=== PATIENT | female | born 1955 | race Caucasian/White ===

== ENCOUNTER → 2017-02-16 | Outpatient (CLI) | payer MEDICARE, OTHER | END | disposition home or self-care (01) | LOC: LABWHC1 10:03 | PROVIDERS: ATTEND Family Medicine | DX: R10.12 Left upper quadrant pain (principal) | CPT/HCPCS: 36415; 82272 ==

== ENCOUNTER → 2017-02-19 | Outpatient (CLI) | payer MEDICARE, OTHER ==
--- NOTE | 2017-02-19 17:10 | CT ---
EXAMINATION TYPE: CT abdomen w con DATE OF EXAM: 02/19/2017 4:52 PM COMPARISON: 05/08/2010 INDICATION: Pt states of upper abdominal pain x2 weeks. DLP: 1121 mGycm, Automated exposure control for dose reduction was used. CONTRAST: 100 mL of Omnipaque 300. Study performed with Oral Contrast TECHNIQUE: Axial images were obtained from above the diaphragm to the pubic rami in the axial plane a t 5 mm thick sections. Reconstructed images are reviewed on the computer in the coronal plane. FINDINGS: Limited CT sections are obtained the lung bases. The lung bases are clear. Hiatal hernia is present . CT ABDOMEN: Liver: There is a 0.6 cm cyst in the posterior right lobe liver. Spleen: Normal Pancreas: Normal Adrenal glands: The adrenal glands are normal. Gallbladder: Normal Kidneys: No masses are evident. No hydronephrosis is present. No cysts are present. Delayed images were obtained through the kidneys, which remain unremarkable. Aorta: Vascular calcification is within the aorta. Inferior vena cava: Normal. Loops of bowel within the abdomen are normal. Fecal debris is through the colon. Contrast extends the distal small bowel loops. There are loops lacking oral contrast are out of the [id number]-mm-buri and cannot be evaluated. IMPRESSIONS: 1. Mild fecal retention. 2. Hiatal hernia. 3. Hepatic cyst
== END ==
LOC: RADCTMAIN 16:17
PROVIDERS: ATTEND Family Medicine
DX: K44.9 Diaphragmatic hernia without obstruction or gangrene (principal); K76.89 Other specified diseases of liver; K59.00 Constipation, unspecified
CPT/HCPCS: 74160; Q9967

== ENCOUNTER → 2017-04-03 | Outpatient (CLI) | payer MEDICARE, OTHER ==
--- NOTE | 2017-04-07 14:29 | MM ---
Reason for exam: screening (asymptomatic). Last mammogram was performed 7 years and 1 month ago. History: Patient is postmenopausal and has history of other cancer at age 33. Family history of breast cancer in maternal aunt. Benign excisional biopsy, 2011. Physical Findings: A clinical breast exam by your physician is recommended on an annual basis and results should be correlated with mammographic findings. MG 3D Screening Mammo W/Cad Bilateral CC and MLO view(s) were taken. Prior study comparison: February 19, 2010, mammogram, performed at [facility]. There are scattered fibroglandular densities. Previous mammotome biopsy within the right breast. There is chronic nodularity bilaterally. No significant changes when compared with prior studies. ASSESSMENT: Benign, BI-RAD 2 RECOMMENDATION: Routine screening mammogram of both breasts in 1 year.
== END | disposition home or self-care (01) ==
LOC: RADMAMWWP 14:52
PROVIDERS: ATTEND Family Medicine
DX: Z12.31 Encounter for screening mammogram for malignant neoplasm of breast (principal)
CPT/HCPCS: 77063; G0202

== ENCOUNTER → 2017-05-06 | Outpatient (CLI) | payer MEDICARE, OTHER ==
--- NOTE | 2017-05-06 19:26 | US ---
EXAMINATION TYPE: US venous doppler duplex LE LT DATE OF EXAM: 05/06/2017 7:17 PM COMPARISON: NONE CLINICAL HISTORY: LLE Edema R22.42, M79.662 Pain in L Lower Limb. SIDE PERFORMED: Left TECHNIQUE: The lower extremity deep venous system is examined utilizing real time linear array sonog vesta with graded compression, doppler sonography and color-flow sonography. VESSELS IMAGED: External Iliac Vein (EIV) Common Femoral Vein Deep Femoral Vein Greater Saphenous Vein * Femoral Vein Popliteal Vein Small Saphenous Vein * Proximal Calf Veins (* superficial vessels) Left Leg: Negative for DVT IMPRESSION: Normal exam. No evidence of deep venous thrombosis.
== END | disposition home or self-care (01) ==
LOC: RADUSMAIN 18:19
PROVIDERS: ATTEND Family Medicine
DX: R22.42 Localized swelling, mass and lump, left lower limb (principal)

== ENCOUNTER 2017-05-14 20:01 | Emergency (ER) | payer MEDICARE, OTHER ==
[2017-05-14 20:15] VITALS: RESP 18; TEMP 99
[2017-05-14] MEDS ORDERED: HYDROcodone/APAP 5-325MG 1 EACH TAB PO STA (20:58)
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
[2017-05-14 21:27] LABS: Appearance,Urine Cloudy (Clear); Bacteria,Urine Few /hpf; Bilirubin,Urine Negative (Negative); Glucose,Urine (UA) Negative (Negative); Ketones,Urine Negative (Negative); Leukocyte Esterase,Urine Large (Negative); Mucus,Urine Rare /hpf; Nitrite,Urine Negative (Negative); Particle Count 3094; Protein,Urine Trace (Negative); RBC,Urine 4 /hpf (0-5); Specific Gravity,Urine 1.017 (1.001-1.035); Squamous Epithelial Cell,Urine 1 /hpf (0-4); UA Billing (MACRO vs. MICRO) MICRO; Urobilinogen,Urine <2.0 mg/dL (<2.0); WBC,Urine 54 /hpf (0-5)
[2017-05-14] MEDS ORDERED: NITROFURANTOIN MONOHYD/M-CRYST 100 MG CAP PO STA (21:31)
[2017-05-14 21:57] VITALS: BP 145/84; PULSE 85
== END 2017-05-14 21:55 | disposition home or self-care (01) ==
LOC: EC 20:01
DX: M25.552 Pain in left hip (principal); M54.5 Low back pain; M54.16 Radiculopathy, lumbar region; N39.0 Urinary tract infection, site not specified; Z88.2 Allergy status to sulfonamides; M79.652 Pain in left thigh; Z79.899 Other long term (current) drug therapy; K21.9 Gastro-esophageal reflux disease without esophagitis; F31.9 Bipolar disorder, unspecified; F17.200 Nicotine dependence, unspecified, uncomplicated
CPT/HCPCS: 81001; 87086; 99284

== ENCOUNTER → 2017-05-14 | Outpatient (CLI) | payer MEDICARE, OTHER ==
--- NOTE | 2017-05-14 12:43 | XR ---
EXAMINATION TYPE: XR Hip Complete LT DATE OF EXAM: 05/14/2017 CLINICAL HISTORY: pain TECHNIQUE: AP and frogleg views of the left hip are obtained. COMPARISON: None. FINDINGS: There is no acute fracture/dislocation evident. The joint space appears mildly narrowed. Mild spur formation seen. The overlying soft tissue appears unremarkable. IMPRESSION: 1. There is no acute fracture or dislocation. ICD 10 NO FRACTURE, INITIAL EVALUATION
== END | disposition home or self-care (01) ==
LOC: RADXRMAIN 11:52
PROVIDERS: ATTEND Family Medicine
DX: M25.552 Pain in left hip (principal)
CPT/HCPCS: 73502

== ENCOUNTER 2017-05-17 11:04 | Emergency (ER) | payer MEDICARE, OTHER ==
[2017-05-17 11:27] VITALS: RESP 18; TEMP 97.8
[2017-05-17] MEDS ORDERED: ORPHENADRINE 30 MG/ML 2 ML VIAL IM STA (12:14)
[2017-05-17] MEDS ORDERED: KETOROLAC 60 MG/2 ML VIAL IM STA (12:14)
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
--- NOTE | 2017-05-17 13:18 | XR ---
EXAMINATION TYPE: XR thoracic spine complete DATE OF EXAM: 05/17/2017 COMPARISON: NONE HISTORY: Pain and injury TECHNIQUE: 3 views FINDINGS: Thoracic vertebra have normal alignment. There is mild anterior spurring in the upper thora cic spine. There is no paraspinal mass. I see no compression fracture. There is suggestion of some pl eural thickening and increased right peritracheal density and bulky right pulmonary hilum. IMPRESSION: No fracture. Possible mediastinal and bronchial adenopathy that is new compared to old est x-ray of May 10, 2010. Follow-up is recommended. Chest x-ray would be helpful for further evaluat ion if clinically indicated.
--- NOTE | 2017-05-17 13:19 | XR ---
EXAMINATION TYPE: XR lumbosacral spine min 4V DATE OF EXAM: 05/17/2017 COMPARISON: NONE HISTORY: Pain TECHNIQUE: 5 views FINDINGS: Vertebra have normal alignment. There is hypertrophic spurring anteriorly throughout the rylie mbar spine. There is no compression fracture. Sacroiliac joints are intact. There is transitional L5 vertebra. IMPRESSION: Spondylotic changes. No fracture.
--- NOTE | 2017-05-17 13:21 | XR ---
EXAMINATION TYPE: XR pelvis AP view DATE OF EXAM: 05/17/2017 COMPARISON: NONE HISTORY: Pain TECHNIQUE: Single view FINDINGS: Pelvic ring is intact. Proximal femurs and hip joints are intact. Sacroiliac joints appear normal. IMPRESSION: Normal pelvis exam
--- NOTE | 2017-05-17 13:22 | XR ---
EXAMINATION TYPE: XR knee 4V LT DATE OF EXAM: 05/17/2017 COMPARISON: NONE HISTORY: Pain TECHNIQUE: 4 views FINDINGS: I see no fracture nor dislocation. Joint spaces are normal. There is no sign of knee joint effusion. IMPRESSION: Negative left knee exam.
[2017-05-17 13:26] LABS: Appearance,Urine Clear (Clear); Bilirubin,Urine Negative (Negative); Glucose,Urine (UA) Negative (Negative); Ketones,Urine Negative (Negative); Leukocyte Esterase,Urine Large (Negative); Mucus,Urine Rare /hpf; Nitrite,Urine Negative (Negative); Particle Count 2789; Protein,Urine Negative (Negative); RBC,Urine 1 /hpf (0-5); Specific Gravity,Urine 1.009 (1.001-1.035); Squamous Epithelial Cell,Urine 1 /hpf (0-4); UA Billing (MACRO vs. MICRO) MICRO; Urobilinogen,Urine <2.0 mg/dL (<2.0); WBC,Urine 10 /hpf (0-5)
--- NOTE | 2017-05-17 13:58 | ED ---
Medical Decision Making - Lab Data Lab Results 05/17/17 Range/Units 12:37 Urine Color Yellow Urine Appearance Clear (Clear) Urine pH 7.0 (5.0-8.0) Ur Specific [place] 1.009 (1.001-1.035) Urine Protein Negative (Negative) Urine Glucose (UA) Negative (Negative) Urine Ketones Negative (Negative) Urine Blood Negative (Negative) Urine Nitrite Negative (Negative) Urine Bilirubin Negative (Negative) Urine Urobilinogen <2.0 (<2.0) mg/dL Ur Leukocyte Esterase Large H (Negative) Urine RBC 1 (0-5) /hpf Urine WBC 10 H (0-5) /hpf Ur Squamous Epith Cells 1 (0-4) /hpf Urine Mucus Rare H (None) /hpf Disposition Clinical Impression: Thoracic myofascial strain, Lumbar strain, Contusion of left knee, UTI ( urinary tract infection) Disposition: HOME SELF-CARE Condition: Good Instructions: Low Back Strain (ED), Knee Pain (ED), Lower Back Exercises (ED), Thoracic Back Strain (ED) Prescriptions: methylPREDNISolone Dose Pack [Medrol Dose Pack] 4 mg PO DIRECTED #21 package traMADol HCL [Ultram] 50 mg PO Q6HR PRN #20 tab PRN Reason: Pain Referrals: Oanh Bansal MD [Primary Care Provider] - 1-2 days
[2017-05-17 14:18] VITALS: BP 144/69; PULSE 84
== END 2017-05-17 14:17 | disposition home or self-care (01) ==
LOC: EC 11:04
DX: S29.012A Strain of muscle and tendon of back wall of thorax, initial encounter (principal); S39.012A Strain of muscle, fascia and tendon of lower back, initial encounter; S80.02XA Contusion of left knee, initial encounter; K21.9 Gastro-esophageal reflux disease without esophagitis; F31.9 Bipolar disorder, unspecified; F17.200 Nicotine dependence, unspecified, uncomplicated; Z79.899 Other long term (current) drug therapy; Z88.2 Allergy status to sulfonamides; V18.4XXA Pedal cycle driver injured in noncollision transport accident in traffic accident, initial encounter; Y92.480 Sidewalk as the place of occurrence of the external cause
CPT/HCPCS: 81001; 72072; 72110; 72170; 73564; 99283; 96372 ×2; J2360; J1885

== ENCOUNTER 2017-05-22 17:23 | Emergency (ER) | payer MEDICARE, OTHER ==
[2017-05-22 18:02] LABS: ALT 34 U/L (9-52); AST 59 U/L (14-36); Alkaline Phosphatase 122 U/L (38-126); Anion Gap 10 mmol/L; Blood Urea Nitrogen 23 mg/dL (7-17); Calcium 9.6 mg/dL (8.4-10.2); Carbon Dioxide 29 mmol/L (22-30); Chloride 100 mmol/L (98-107); Glucose 109 mg/dL (74-99); Non-African American GFR(MDRD) 58 (>60 ml/min/1.73 sqM); Potassium 4.9 mmol/L (3.5-5.1); Sodium 139 mmol/L (137-145); Total Bilirubin 0.3 mg/dL (0.2-1.3); Total Protein 7.8 g/dL (6.3-8.2)
[2017-05-22] MEDS ORDERED: HYDROcodone/APAP 5-325MG 1 EACH TAB PO STA (18:07)
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
[2017-05-22 19:21] VITALS: BP 163/75; TEMP 97.9
--- NOTE | 2017-05-22 19:29 | MR ---
EXAMINATION TYPE: MR lumbar spine w con DATE OF EXAM: 05/22/2017 COMPARISON: Precontrasted lumbar spine MRI earlier today, CT abdomen 02/19/2017 HISTORY: Abnormal finding on MRI brought back for Contrast TECHNIQUE: Multiplanar, multisequence images of the lumbar spine were acquired utilizing 20 mL intrav enous MultiHance gadolinium contrast. IMPRESSION: The precontrast lumbar spine MRI showed innumerable heterogeneous lesions throughout the skeletal structures, giving a presumptive diagnosis of bone metastatic neoplasm. The 2 cm at epidural soft tissue mass at the L3 level, which was the focus of this examination, is se en to moderately enhance following intravenous gadolinium contrast. The enhancement pattern is homoge neous. On the sagittal precontrast T1 weighted sequence (image 7 of 15) there may be interruption of the posterior vertebral body cortex at anterior margin of the soft tissue mass. Therefore, the most likely diagnosis for the epidural soft tissue mass is metastatic epidural neoplasm emanating from the multifocal bone metastases. The diagnosis of bone metastases can be worked up with total body nuclea r medicine bone scan. The differential diagnosis includes an unusual presentation of disc extrusion. However, both the L2-3 annulus fibrosis and the L3-4 annulus fibrosis appear to be intact, making disc extrusion unlikely. Review of the CT from February 19, 2017 shows that the epidural lesion was not present at that time. The skeletal structures have a heterogeneous CT appearance, a nonspecific finding. There is no cortical disruption on the CT images. IMPRESSION: Epidural mass at the L2-3 level moderately enhances following intravenous gadolinium contrast deliver y, as discussed above.
[2017-05-22] MEDS ORDERED: HYDROmorphone 1 MG/ML 1 ML SYRINGE IVP STA (21:05)
[2017-05-22 21:07] VITALS: PULSE 100; RESP 20
== END 2017-05-22 21:40 | disposition other institution (70) ==
LOC: EC 17:23
DX: D49.7 Neoplasm of unspecified behavior of endocrine glands and other parts of nervous system (principal); C79.51 Secondary malignant neoplasm of bone; M54.16 Radiculopathy, lumbar region; M54.5 Low back pain; V19.88XS Pedal cyclist (driver) (passenger) injured in other specified transport accidents, sequela; Y93.55 Activity, bike riding; F31.9 Bipolar disorder, unspecified; K21.9 Gastro-esophageal reflux disease without esophagitis; Z79.899 Other long term (current) drug therapy; Z88.2 Allergy status to sulfonamides; F17.200 Nicotine dependence, unspecified, uncomplicated; Z85.42 Personal history of malignant neoplasm of other parts of uterus
CPT/HCPCS: 96374 ×2; 99285 ×2; 36415; 80053; 72148; 72149; J1170; A9577

== ENCOUNTER → 2017-05-22 | Outpatient (CLI) | payer MEDICARE, OTHER ==
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
== END | disposition home or self-care (01) ==
LOC: RADMRIMAIN 15:31
PROVIDERS: ATTEND Family Medicine
DX: M48.06 Spinal stenosis, lumbar region (principal); M51.16 Intervertebral disc disorders with radiculopathy, lumbar region; M46.86 Other specified inflammatory spondylopathies, lumbar region; R94.8 Abnormal results of function studies of other organs and systems; Z88.1 Allergy status to other antibiotic agents; Z88.2 Allergy status to sulfonamides; Z88.8 Allergy status to other drugs, medicaments and biological substances
CPT/HCPCS: 72148

== ENCOUNTER 2017-06-15 19:22 | Emergency (ER) | payer MEDICARE, OTHER ==
[2017-06-15] MEDS ORDERED: SODIUM CHLORIDE 0.9% 1,000 ML IV STA (19:59)
--- NOTE | 2017-06-15 20:10 | ED ---
General Adult HPI - General Chief complaint: Urogenital Stated complaint: Female Time Seen by Provider: 06/15/17 19:52 Source: patient, RN notes reviewed, old records reviewed Mode of arrival: ambulatory Limitations: no limitations - History of Present Illness Initial comments: This is a 61-year-old female presenting to emergency Department chief complaint of possible dehydration or urinary tract infection. She has a history of small cell lung cancer. She was sent here by her chemo doctor as she has not urinated more than twice in the past 24 hours. She states that she does have an appointment to see her chemo doctor tomorrow. She denies any specific abdominal pain. Patient reports that she is in stage IV with small cell lung cancer. She does have a history of metastases to the spine. She denies any specific fever or chills, nausea or vomiting. She denies any diarrhea. She reports that she's been trying to have a bowel movement and did take some milk Magnesia earlier today. She reports that she's had no chest pain or shortness of breath. - Related Data Home Medications Medication Instructions Recorded Confirmed FLUoxetine HCL 40 mg PO BID 05/14/17 06/15/17 Perphenazine [Trilafon] 2 mg PO BID 05/14/17 06/15/17 traZODone HCL [Desyrel] 100 mg PO HS 05/22/17 06/15/17 Dexamethasone [Hexadrol] 4 mg PO Q8H 06/15/17 06/15/17 Gabapentin [Neurontin] 400 mg PO TID 06/15/17 06/15/17 Morphine Sulfate ER [Ms Contin 30 mg PO Q12HR 06/15/17 06/15/17 30Mg] Pantoprazole [Protonix] 40 mg PO DAILY 06/15/17 06/15/17 Sennosides [Senna] 8.6 mg PO BID 06/15/17 06/15/17 oxyCODONE-APAP 5-325MG [Percocet 1 tab PO Q4H PRN 06/15/17 06/15/17 5-325 mg] Previous Rx's Medication Instructions Recorded Nitrofurantoin Monohyd/M-Cryst 100 mg PO Q12HR #14 cap 06/15/17 [Macrobid] Allergies Allergy/AdvReac Type Severity Reaction Status Date / Time adhesive tape Allergy Rash/Hives Verified 06/15/17 19:52 Sulfa (Sulfonamide Allergy Itching Verified 06/15/17 19:52 Antibiotics) Review of Systems ROS Statement: Those systems with pertinent positive or pertinent negative responses have been documented in the HPI. ROS Other: All systems not noted in ROS Statement are negative. Past Medical History Past Medical History: GERD/Reflux Additional Past Medical History / Comment(s): small cell lung ca. History of Any Multi-Drug Resistant Organisms: None Reported Past Surgical History: Hysterectomy, Tonsillectomy Past Psychological History: Bipolar, Depression Smoking Status: Former smoker Past Alcohol Use History: None Reported Past Drug Use History: None Reported General Exam Limitations: no limitations General appearance: alert, in no apparent distress Head exam: Present: atraumatic, normocephalic, normal inspection Eye exam: Present: normal appearance, PERRL, EOMI. Absent: scleral icterus, conjunctival injection, periorbital swelling ENT exam: Present: normal exam, mucous membranes moist Neck exam: Present: normal inspection. Absent: tenderness, meningismus, lymphadenopathy Respiratory exam: Present: normal lung sounds bilaterally. Absent: respiratory distress, wheezes, rales, rhonchi, stridor Cardiovascular Exam: Present: regular rate, normal rhythm, normal heart sounds. Absent: systolic murmur, diastolic murmur, rubs, gallop, clicks Extremities exam: Present: normal inspection, full ROM, normal capillary refill. Absent: tenderness, pedal edema, joint swelling, calf tenderness Back exam: Present: normal inspection Neurological exam: Present: alert, oriented X3, CN II-XII intact Psychiatric exam: Present: normal affect, normal mood Skin exam: Present: warm, dry, intact, normal color. Absent: rash Course Vital Signs 06/15/17 06/15/17 19:28 22:33 Temperature 96.7 F L 97.6 F Pulse Rate 76 69 Respiratory 20 16 Rate Blood Pressure 143/66 133/62 O2 Sat by Pulse 98 99 Oximetry Medical Decision Making - Medical Decision Making This is a 61-year-old female presenting to emergency Department chief complaint of possible dehydration or urinary tract infection. She has a history of small cell lung cancer. She was sent here by her chemo doctor as she has not urinated more than twice in the past 24 hours. She states that she does have an appointment to see her chemo doctor tomorrow. She denies any specific abdominal pain. Patient given IV fluids, Urinalysis is consistent with UTI. She has mildly increased renal function, likely related to dehydration. PAtient will be started on antibiotics and advised to follow up with oncologist and PCP. Return parameters dsicussed. - Lab Data Result diagrams: 06/15/17 20:56 06/15/17 20:56 Lab Results 06/15/17 06/15/17 06/15/17 Range/Units 19:50 20:56 20:56 WBC 4.9 (3.8-10.6) k/uL RBC 3.78 L (3.80-5.40) m/uL Hgb 11.3 L (11.4-16.0) gm/dL Hct 33.8 L (34.0-46.0) % MCV 89.4 (80.0-100.0) fL MCH 29.8 (25.0-35.0) pg MCHC 33.3 (31.0-37.0) g/dL RDW 15.5 (11.5-15.5) % Plt Count 178 (150-450) k/uL Neutrophils % 73 % Lymphocytes % 13 % Monocytes % 9 % Eosinophils % 1 % Basophils % 1 % Neutrophils # 3.5 (1.3-7.7) k/uL Lymphocytes # 0.6 L (1.0-4.8) k/uL Monocytes # 0.4 (0-1.0) k/uL Eosinophils # 0.0 (0-0.7) k/uL Basophils # 0.1 (0-0.2) k/uL Polychromasia Present Sodium 132 L (137-145) mmol/L Potassium 5.0 (3.5-5.1) mmol/L Chloride 100 (98-107) mmol/L Carbon Dioxide 26 (22-30) mmol/L Anion Gap 6 mmol/L BUN 37 H (7-17) mg/dL Creatinine 0.72 (0.52-1.04) mg/dL Est GFR (MDRD) Af Amer >60 (>60 ml/min/1.73 sqM) Est GFR (MDRD) Non-Af >60 (>60 ml/min/1.73 sqM) Glucose 142 H (74-99) mg/dL Calcium 7.9 L (8.4-10.2) mg/dL Total Bilirubin 0.5 (0.2-1.3) mg/dL AST 34 (14-36) U/L ALT 40 (9-52) U/L Alkaline Phosphatase 177 H (38-126) U/L Total Protein 5.5 L (6.3-8.2) g/dL Albumin 3.1 L (3.5-5.0) g/dL Lipase 91 (23-300) U/L Urine Color Yellow Urine Appearance Clear (Clear) Urine pH 6.0 (5.0-8.0) Ur Specific [place] 1.029 (1.001-1.035) Urine Protein Trace H (Negative) Urine Glucose (UA) Negative (Negative) Urine Ketones Negative (Negative) Urine Blood Negative (Negative) Urine Nitrite Negative (Negative) Urine Bilirubin Negative (Negative) Urine Urobilinogen <2.0 (<2.0) mg/dL Ur Leukocyte Esterase Moderate H (Negative) Urine RBC 2 (0-5) /hpf Urine WBC 31 H (0-5) /hpf Ur Squamous Epith Cells 2 (0-4) /hpf Urine Bacteria Rare H (None) /hpf Hyaline Casts 3 H (0-2) /lpf Urine Mucus Rare H (None) /hpf Disposition Clinical Impression: UTI (urinary tract infection) Disposition: HOME SELF-CARE Condition: Good Instructions: Urinary Tract Infection in Women (ED) Additional Instructions: Patient was rest, increase fluids. Take the medications as directed. Return to emergency department if any alarming signs or symptoms occur. Prescriptions: Nitrofurantoin Monohyd/M-Cryst [Macrobid] 100 mg PO Q12HR #14 cap Referrals: Oanh Bansal MD [Primary Care Provider] - 1-2 days Time of Disposition: 22:06
--- NOTE | 2017-06-15 20:15 | XR ---
EXAMINATION TYPE: XR KUB DATE OF EXAM: 06/15/2017 8:10 PM CLINICAL HISTORY: Urinary retention. History of lung cancer. TECHNIQUE: Single supine KUB image of the abdomen is obtained. COMPARISON: 05/10/2010. FINDINGS: Scattered gas is seen in non-distended small bowel loops. Gas and fecal material is seen in non-distended colon. Bridging osteophytes are seen within the lumbar spine. Mild degenerative change s of the femoral acetabular joints are displayed as acetabular sclerosis an minimal joint space narro wing. There is no visceromegaly, pneumoperitoneum, or abnormal calcification appreciated. Single phle bolith is seen below the left ischial spine. The lung bases are clear and the osseous structures are intact. IMPRESSION: 1. Overall nonobstructive bowel gas pattern. 2. No abnormal calcifications within the abdomen or pelvis.
[2017-06-15 20:45] LABS: Appearance,Urine Clear (Clear); Bacteria,Urine Rare /hpf; Bilirubin,Urine Negative (Negative); Glucose,Urine (UA) Negative (Negative); Ketones,Urine Negative (Negative); Leukocyte Esterase,Urine Moderate (Negative); Mucus,Urine Rare /hpf; Nitrite,Urine Negative (Negative); Particle Count 4885; Protein,Urine Trace (Negative); RBC,Urine 2 /hpf (0-5); Specific Gravity,Urine 1.029 (1.001-1.035); Squamous Epithelial Cell,Urine 2 /hpf (0-4); UA Billing (MACRO vs. MICRO) MICRO; Urobilinogen,Urine <2.0 mg/dL (<2.0); WBC,Urine 31 /hpf (0-5)
[2017-06-15 21:21] LABS: ALT 40 U/L (9-52); AST 34 U/L (14-36); Alkaline Phosphatase 177 U/L (38-126); Anion Gap 6 mmol/L; Blood Urea Nitrogen 37 mg/dL (7-17); Calcium 7.9 mg/dL (8.4-10.2); Carbon Dioxide 26 mmol/L (22-30); Chloride 100 mmol/L (98-107); Glucose 142 mg/dL (74-99); Non-African American GFR(MDRD) >60 (>60 ml/min/1.73 sqM); Sodium 132 mmol/L (137-145); Total Bilirubin 0.5 mg/dL (0.2-1.3); Total Protein 5.5 g/dL (6.3-8.2)
[2017-06-15 21:24] LABS: Basophils # (A) 0.1 k/uL (0-0.2); Basophils % (A) 1 %; CH 30.3; Eosinophils % (A) 1 %; HCT 33.8 % (34.0-46.0); HDW 2.56; HGB 11.3 gm/dL (11.4-16.0); Immature Gran Flag Moderate; Luc % (Auto) 4; Lymphocytes # (A) 0.6 k/uL (1.0-4.8); Lymphocytes % (A) 13 %; MCH 29.8 pg (25.0-35.0); MCHC 33.3 g/dL (31.0-37.0); MCV 89.4 fL (80.0-100.0); Mean Platelet Volume 7.1; Monocytes # (A) 0.4 k/uL (0-1.0); Monocytes % (A) 9 %; Neutrophils # (A) 3.5 k/uL (1.3-7.7); Neutrophils % (A) 73 %; RBC 3.78 m/uL (3.80-5.40); RDW 15.5 % (11.5-15.5); WBC 4.9 k/uL (3.8-10.6); WBC (Perox) 4.72
[2017-06-15 21:53] LABS: Polychromasia Present
[2017-06-15] MEDS ORDERED: NITROFURANTOIN MONOHYD/M-CRYST 100 MG CAP PO STA (22:07)
[2017-06-15 22:36] VITALS: BP 133/62; PULSE 69; RESP 16; TEMP 97.6
== END 2017-06-15 22:44 | disposition home or self-care (01) ==
LOC: EC 19:22
DX: N39.0 Urinary tract infection, site not specified (principal); K21.9 Gastro-esophageal reflux disease without esophagitis; F31.9 Bipolar disorder, unspecified; Z85.118 Personal history of other malignant neoplasm of bronchus and lung; Z87.891 Personal history of nicotine dependence; Z79.891 Long term (current) use of opiate analgesic; Z79.899 Other long term (current) drug therapy; Z88.2 Allergy status to sulfonamides; Z91.048 Other nonmedicinal substance allergy status
CPT/HCPCS: 36415; 74000; 80053; 81001; 83690; 85025; 96360; 99284

== ENCOUNTER 2017-07-05 20:51 | Inpatient (IN) | payer MEDICARE, OTHER ==
[2017-07-05] MEDS ORDERED: SODIUM CHLORIDE 0.9% 1,000 ML IV STA ×2 (21:01)
[2017-07-05] MEDS ORDERED: ACETAMINOPHEN IV (For NPO) 1,000 MG in EMPTY BAG 1 BAG IVPB ONE (21:01)
[2017-07-05] MEDS ORDERED: FAMOTIDINE 20 MG/2 ML VIAL IV STA (21:03)
[2017-07-05] MEDS ORDERED: ONDANSETRON 4 MG/2 ML VIAL IVP STA (21:04)
--- NOTE | 2017-07-05 21:14 | ED ---
General Adult HPI - General Chief complaint: Headache Stated complaint: Headache/Nausea/Vomiting Time Seen by Provider: 07/05/17 20:53 Source: patient, family, EMS, RN notes reviewed, old records reviewed Mode of arrival: EMS Limitations: no limitations - History of Present Illness Initial comments: Chief complaint history of present illness is a 61-year-old female scone the emergency goes of nausea vomiting diarrhea and headache. The patient temperature is 103. All this started approximately 3 hours ago. Patient doesn' t know history of small cell lung cancer. She was recently treated urinary tract infection. - Related Data Home Medications Medication Instructions Recorded Confirmed FLUoxetine HCL 40 mg PO BID 05/14/17 07/05/17 Perphenazine [Trilafon] 2 mg PO BID 05/14/17 07/05/17 traZODone HCL [Desyrel] 100 mg PO HS PRN 05/22/17 07/05/17 Dexamethasone [Hexadrol] 4 mg PO Q8H 06/15/17 07/05/17 Gabapentin [Neurontin] 400 mg PO TID 06/15/17 07/05/17 Morphine Sulfate ER [Ms Contin 30 mg PO Q12HR 06/15/17 07/05/17 30Mg] Pantoprazole [Protonix] 40 mg PO DAILY 06/15/17 07/05/17 Sennosides [Senna] 8.6 mg PO BID 06/15/17 07/05/17 oxyCODONE-APAP 5-325MG [Percocet 1 tab PO Q4H PRN 06/15/17 07/05/17 5-325 mg] Allergies Allergy/AdvReac Type Severity Reaction Status Date / Time adhesive tape Allergy Rash/Hives Verified 07/05/17 21:16 Sulfa (Sulfonamide Allergy Itching Verified 07/05/17 21:16 Antibiotics) Review of Systems ROS Statement: Those systems with pertinent positive or pertinent negative responses have been documented in the HPI. Review of systems headache but no meningismus no complaint of change in visual acuity. Denies cough. She does not nausea vomiting and diarrhea. All systems reviewed. Past medical problems significant for GERD, small cell lung cancer. Surgeries hysterectomy tonsillectomy. Recently in emergency room for dehydration. The patient's undergoing chemotherapy. With reported metastases to the spine. Other past psychological history includes bipolar depression. Former smoker. Denies alcohol use. ROS Other: All systems not noted in ROS Statement are negative. Past Medical History Past Medical History: GERD/Reflux Additional Past Medical History / Comment(s): small cell lung ca. History of Any Multi-Drug Resistant Organisms: None Reported Past Surgical History: Hysterectomy, Tonsillectomy Past Psychological History: Bipolar, Depression Smoking Status: Former smoker Past Alcohol Use History: None Reported Past Drug Use History: None Reported General Exam - General Exam Comments Initial Comments: General: The patient is awake and alert, patient complains not feeling well. This started approximately 3 hours prior to coming emergency room. Her vital signs show temperature 103. Pulse 79 respiratory rate 20 pulse ox 96% room air blood pressure 172/77. Eye: Pupils are equal, round and reactive to light, extra-ocular movements are intact ; there is normal conjunctiva bilaterally. No signs of icterus. Ears, nose, mouth and throat: There are moist mucous membranes and no oral lesions. Neck: The neck is supple, there is no tenderness. Cardiovascular: There is a regular rate and rhythm. No murmur, rub or gallop is appreciated. Respiratory: Lungs are clear to auscultation, respirations are non-labored, breath sounds are equal. Rare rales on the right mid field. Gastrointestinal: No nausea no vomiting patient did have diarrhea. Back: There is no tenderness to palpation in the midline. There is no obvious deformity. No rashes noted. Musculoskeletal: Normal ROM, no tenderness, There is no pedal edema. There is no calf tenderness or swelling. Sensation intact. Pulses equal bilaterally 2+. Family reports that the lung cancer metastasized to the spine. Neurological: CN II-XII intact, There are no obvious motor or sensory deficits. Coordination appears grossly intact. Speech is normal. Patient is able to ambulate without difficulty. Skin: No rashes Limitations: no limitations Course Vital Signs 07/05/17 07/05/17 07/05/17 20:56 22:29 22:57 Temperature 103.0 F H 101.0 F H Pulse Rate 79 94 Respiratory 20 17 Rate Blood Pressure 172/77 131/64 O2 Sat by Pulse 96 98 Oximetry Medical Decision Making - Medical Decision Making Medical decision-making. The patient is here with a fever. She has had 2 courses of chemotherapy for small cell lung cancer. The patient spiked a fever approximate 6 PM this evening. Upon arrival to emergency room temperature 103. Pulse is only 79 respiratory rate 2696% room air with a blood pressure 172/ 77. Patient also had loose stool. The patient's labs show white count of 0.9 with a hemoglobin 10 hematocrit 29 platelet 66. Plasma lactic acid normal 1.8. BUN 24 creatinine 0.7 GFR greater than 60. Patient is neutropenic. Chest x- ray was suspicious for possible patchy infiltrate in the right perihilar region. She received cefepime shortly after arrival to emergency room. A call was put out to her oncologist Dr. Jere Suárez. We have not received a call back at this time. The patient had wanted to be transferred down to [facility] but without accepting physician she does agree to stay here continue her treatment. If her doctor calls and arrangements can be made for transfer at that time. Dr. Pabon The case discussed with the on-call hospitalist. Patient will be admitted to his service. We discussed her past history and current labs. Patient be continued on cefepime - Lab Data Result diagrams: 07/05/17 21:15 07/05/17 21:15 Lab Results 07/05/17 07/05/17 07/05/17 Range/Units 09:30 21:15 21:15 WBC 0.9 L* (3.8-10.6) k/uL RBC 3.33 L (3.80-5.40) m/uL Hgb 10.2 L (11.4-16.0) gm/dL Hct 29.6 L (34.0-46.0) % MCV 89.0 (80.0-100.0) fL MCH 30.7 (25.0-35.0) pg MCHC 34.5 (31.0-37.0) g/dL RDW 17.0 H (11.5-15.5) % Plt Count 66 L D (150-450) k/uL Neutrophils % (Manual) 21 % Lymphocytes % (Manual) 63 % Monocytes % (Manual) 14 % Eosinophils % (Manual) 1 % Basophils % (Manual) 1 % Neutrophils # (Manual) 0.19 L (1.3-7.7) k/uL Lymphocytes # (Manual) 0.57 L (1.0-4.8) k/uL Monocytes # (Manual) 0.13 (0-1.0) k/uL Eosinophils # (Manual) 0.01 (0-0.7) k/uL Basophils # (Manual) 0.01 (0-0.2) k/uL Nucleated RBCs 6 H (0-0) /100 WBC Manual Slide Review Performed Anisocytosis Slight Sodium 131 L (137-145) mmol/L Potassium 4.6 (3.5-5.1) mmol/L Chloride 99 (98-107) mmol/L Carbon Dioxide 25 (22-30) mmol/L Anion Gap 7 mmol/L BUN 24 H (7-17) mg/dL Creatinine 0.70 (0.52-1.04) mg/dL Est GFR (MDRD) Af Amer >60 (>60 ml/min/1.73 sqM) Est GFR (MDRD) Non-Af >60 (>60 ml/min/1.73 sqM) Glucose 125 H (74-99) mg/dL Plasma Lactic Acid Lawrence (0.7-2.0) mmol/L Calcium 8.1 L (8.4-10.2) mg/dL Total Bilirubin 0.4 (0.2-1.3) mg/dL AST 18 (14-36) U/L ALT 45 (9-52) U/L Alkaline Phosphatase 111 (38-126) U/L Total Protein 5.5 L (6.3-8.2) g/dL Albumin 3.2 L (3.5-5.0) g/dL Urine Color Urine Appearance (Clear) Urine pH (5.0-8.0) Ur Specific [place] (1.001-1.035) Urine Protein (Negative) Urine Glucose (UA) (Negative) Urine Ketones (Negative) Urine Blood (Negative) Urine Nitrite (Negative) Urine Bilirubin (Negative) Urine Urobilinogen (<2.0) mg/dL Ur Leukocyte Esterase (Negative) C. difficile (EIA) Intrp Negative (Negative) Influenza Type A RNA (Not Detectd) Influenza Type B (PCR) (Not Detectd) 07/05/17 07/05/17 07/05/17 Range/Units 21:15 21:32 23:00 WBC (3.8-10.6) k/uL RBC (3.80-5.40) m/uL Hgb (11.4-16.0) gm/dL Hct (34.0-46.0) % MCV (80.0-100.0) fL MCH (25.0-35.0) pg MCHC (31.0-37.0) g/dL RDW (11.5-15.5) % Plt Count (150-450) k/uL Neutrophils % (Manual) % Lymphocytes % (Manual) % Monocytes % (Manual) % Eosinophils % (Manual) % Basophils % (Manual) % Neutrophils # (Manual) (1.3-7.7) k/uL Lymphocytes # (Manual) (1.0-4.8) k/uL Monocytes # (Manual) (0-1.0) k/uL Eosinophils # (Manual) (0-0.7) k/uL Basophils # (Manual) (0-0.2) k/uL Nucleated RBCs (0-0) /100 WBC Manual Slide Review Anisocytosis Sodium (137-145) mmol/L Potassium (3.5-5.1) mmol/L Chloride (98-107) mmol/L Carbon Dioxide (22-30) mmol/L Anion Gap mmol/L BUN (7-17) mg/dL Creatinine (0.52-1.04) mg/dL Est GFR (MDRD) Af Amer (>60 ml/min/1.73 sqM) Est GFR (MDRD) Non-Af (>60 ml/min/1.73 sqM) Glucose (74-99) mg/dL Plasma Lactic Acid Lawrence 1.8 (0.7-2.0) mmol/L Calcium (8.4-10.2) mg/dL Total Bilirubin (0.2-1.3) mg/dL AST (14-36) U/L ALT (9-52) U/L Alkaline Phosphatase (38-126) U/L Total Protein (6.3-8.2) g/dL Albumin (3.5-5.0) g/dL Urine Color Colorless Urine Appearance Clear (Clear) Urine pH 7.0 (5.0-8.0) Ur Specific [place] 1.010 (1.001-1.035) Urine Protein Negative (Negative) Urine Glucose (UA) Negative (Negative) Urine Ketones Negative (Negative) Urine Blood Negative (Negative) Urine Nitrite Negative (Negative) Urine Bilirubin Negative (Negative) Urine Urobilinogen <2.0 (<2.0) mg/dL Ur Leukocyte Esterase Negative (Negative) C. 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
[2017-07-05 21:38] LABS: Anisocytosis Slight; Aty Lym Flag Slight; CH 30.5; CHCM 34.4; HCT 29.6 % (34.0-46.0); HDW 3.04; HGB 10.2 gm/dL (11.4-16.0); MCH 30.7 pg (25.0-35.0); MCHC 34.5 g/dL (31.0-37.0); Mean Platelet Volume 7.4; RBC 3.33 m/uL (3.80-5.40); WBC (Perox) 1.12
[2017-07-05] MEDS ORDERED: CEFEPIME 2 GM in SODIUM CHLORIDE 0.9% 50 ML IVPB STA (21:49)
[2017-07-05 21:50] LABS: ALT 45 U/L (9-52); AST 18 U/L (14-36); Alkaline Phosphatase 111 U/L (38-126); Anion Gap 7 mmol/L; Blood Urea Nitrogen 24 mg/dL (7-17); Calcium 8.1 mg/dL (8.4-10.2); Carbon Dioxide 25 mmol/L (22-30); Chloride 99 mmol/L (98-107); Glucose 125 mg/dL (74-99); Non-African American GFR(MDRD) >60 (>60 ml/min/1.73 sqM); Potassium 4.6 mmol/L (3.5-5.1); Sodium 131 mmol/L (137-145); Total Bilirubin 0.4 mg/dL (0.2-1.3); Total Protein 5.5 g/dL (6.3-8.2)
[2017-07-05 21:55] LABS: Add Differential Manual Differential
[2017-07-05 21:56] LABS: Nucleated Red Blood Cells 6 /100 WBC (0-0); Total Cells Counted 100
[2017-07-05 21:57] LABS: WBC 0.9 k/uL (3.8-10.6)
[2017-07-05 21:58] LABS: Manual Review Performed
--- NOTE | 2017-07-05 22:20 | XR ---
EXAM: XR Chest, 1 View CLINICAL HISTORY: Reason: Fever, history small cell lung cancer TECHNIQUE: Frontal view of the chest. COMPARISON: 05/10/10 FINDINGS: Lungs: Patchy opacity in the right perihilar area. Pulmonary vasculature is normal. Pleural space: Unremarkable. No pneumothorax. Heart: Heart size is normal. Mediastinum: Unremarkable. Bones/joints: Unremarkable. Tubes, lines and devices: Left chest Mediport in place with catheter tip in the cavoatrial junction. IMPRESSION: Patchy right perihilar opacity. This may be consolidation relating to known small cell lung cancer. Pneumonic infiltrate is not excluded. Correlate clinically.
[2017-07-05] MEDS ORDERED: METOCLOPRAMIDE 5 MG/ML 2 ML VIAL IVP STA (22:36)
[2017-07-05 23:12] LABS: Appearance,Urine Clear (Clear); Bilirubin,Urine Negative (Negative); Glucose,Urine (UA) Negative (Negative); Ketones,Urine Negative (Negative); Leukocyte Esterase,Urine Negative (Negative); Nitrite,Urine Negative (Negative); Protein,Urine Negative (Negative); UA Billing (MACRO vs. MICRO) CHEM; Urobilinogen,Urine <2.0 mg/dL (<2.0)
[2017-07-05] MEDS ORDERED: CEFEPIME 2 GM in SODIUM CHLORIDE 0.9% 50 ML IVPB SCH (23:30)
[2017-07-05] MEDS ORDERED: VANCOMYCIN IV PER PHARMACY 1 EACH MISC MISCELLANE PRN (23:32)
[2017-07-05] MEDS ORDERED: traZODone HCL 100 MG TAB PO PRN (23:38)
[2017-07-05] MEDS ORDERED: oxyCODONE-APAP 5-325MG 1 EACH TAB PO PRN (23:38)
--- NOTE | 2017-07-05 23:44 | P.HPIM ---
History of Present Illness H&P Date: 07/05/17 Chief Complaint: Nausea and vomiting 61yo lady h/o small cell lung ca on chemotherapy with last cycle being 2wks ago , p/w weakness, fever and nausea/vomiting for the last few days. She has recent UTI that was treated with ABx. In the ED, she had a Tmax of 103 with WBC 0.9 only. CXR showed perihilar opacity that was concerning for possible PNA. She did have -ve C.Diff, Flu, in the ED. She got IV Tylenol and 1L bolus that broughther fever down. She was started on Cefepime after obtaining blood Cx. ED planned to transfer her to her oncologist in [facility] but no response was available from the other side overnight. Pt is in lots of distress when seen, pain was not controlled, generalized in the body, she takes MsContin and Percocet at home, she verbalized that she needs to be placed in hospice. Review of Systems Constitutional: Reports anorexia, Reports chills, Reports chronic pain, Reports fever Eyes: denies blurred vision Ears: deny: ear discharge Ears, nose, mouth and throat: Denies nasal congestion, Denies neck fullness/ pressure, Denies sore throat Cardiovascular: Denies claudication, Denies leg edema, Denies syncope Respiratory: Denies congestion, Denies hemoptysis Gastrointestinal: Reports abdominal pain, Denies diarrhea, Denies hematemesis Genitourinary: Reports dysuria, Denies hematuria Musculoskeletal: Reports low back pain, Reports myalgias, Reports neck pain Musculoskeletal: bilateral: as per HPI Integumentary: Denies pruritus, Denies rash Neurological: Denies confusion, Denies loss of vision, Denies syncope Psychiatric: Reports anxiety, Reports depression, Denies hallucinations Endocrine: Reports weight change, Denies cold intolerance Allergic/Immunologic: Denies urticaria, Denies wheezing Past Medical History Past Medical History: GERD/Reflux Additional Past Medical History / Comment(s): small cell lung ca. History of Any Multi-Drug Resistant Organisms: None Reported Past Surgical History: Hysterectomy, Tonsillectomy Past Psychological History: Bipolar, Depression Smoking Status: Former smoker Past Alcohol Use History: None Reported Past Drug Use History: None Reported - Past Family History Daughter(s) Additional Family Medical History / Comment(s): nothing known Mother Family Medical History: Diabetes Mellitus Medications and Allergies Home Medications Medication Instructions Recorded Confirmed Type FLUoxetine HCL 40 mg PO BID 05/14/17 07/05/17 History Perphenazine [Trilafon] 2 mg PO BID 05/14/17 07/05/17 History traZODone HCL [Desyrel] 100 mg PO HS PRN 05/22/17 07/05/17 History Dexamethasone [Hexadrol] 4 mg PO Q8H 06/15/17 07/05/17 History Gabapentin [Neurontin] 400 mg PO TID 06/15/17 07/05/17 History Morphine Sulfate ER [Ms Contin 30 mg PO Q12HR 06/15/17 07/05/17 History 30Mg] Pantoprazole [Protonix] 40 mg PO DAILY 06/15/17 07/05/17 History Sennosides [Senna] 8.6 mg PO BID 06/15/17 07/05/17 History oxyCODONE-APAP 5-325MG [Percocet 1 tab PO Q4H PRN 06/15/17 07/05/17 History 5-325 mg] Allergies Allergy/AdvReac Type Severity Reaction Status Date / Time adhesive tape Allergy Rash/Hives Verified 07/05/17 21:16 bee venom protein (honey bee) Allergy Rash/Hives Verified 07/06/17 00:41 Sulfa (Sulfonamide Allergy Itching Verified 07/05/17 21:16 Antibiotics) Physical Exam Vitals: Vital Signs Temp Pulse Resp BP Pulse Ox 07/05/17 22:57 101.0 F H 07/05/17 22:29 94 17 131/64 98 07/05/17 20:56 103.0 F H 79 20 172/77 96 Intake and Output 07/05/17 07/05/17 07/06/17 14:59 22:59 06:59 Other: Weight 92.533 kg Patient Weight 07/06/17 06:59 Weight 92.533 kg - Constitutional General appearance: severe distress - EENT Eyes: EOMI, PERRLA - Neck Neck: no thyromegaly - Respiratory Respiratory: bilateral: CTA, negative: dullness, wheezing - Cardiovascular Rhythm: regular Heart sounds: normal: S1, S2 Abnormal Heart Sounds: no systolic murmur - Gastrointestinal General gastrointestinal: normal bowel sounds, no organomegaly, no soft, no tenderness - Integumentary Integumentary: no cellulitis Results CBC & Chem 7: 07/06/17 05:10 07/06/17 05:10 Labs: Abnormal Lab Results - Last 24 Hours (Table) 07/05/17 07/05/17 Range/Units 21:15 21:15 WBC 0.9 L* (3.8-10.6) k/uL RBC 3.33 L (3.80-5.40) m/uL Hgb 10.2 L (11.4-16.0) gm/dL Hct 29.6 L (34.0-46.0) % RDW 17.0 H (11.5-15.5) % Plt Count 66 L D (150-450) k/uL Neutrophils # (Manual) 0.19 L (1.3-7.7) k/uL Lymphocytes # (Manual) 0.57 L (1.0-4.8) k/uL Nucleated RBCs 6 H (0-0) /100 WBC Sodium 131 L (137-145) mmol/L BUN 24 H (7-17) mg/dL Glucose 125 H (74-99) mg/dL Calcium 8.1 L (8.4-10.2) mg/dL Total Protein 5.5 L (6.3-8.2) g/dL Albumin 3.2 L (3.5-5.0) g/dL Thrombosis Risk Factor Assmnt - DVT/VTE Prophylaxis DVT/VTE Prophylaxis: Pharmacologic Prophylaxis ordered Assessment and Plan Plan: #Neutropenic fever of undetermined etiology -Neg C.Diff and Flu, pending blood Cx (including the post) and UA -Cont on Cefepime and Vancomycin -Concern for possible HCAP, pt reported increasing coughing recently -Postponed ID and Onc Cs for now as pt is asking for hospice care #Small cell lung Ca -Transfer to her oncologist in [place] once posible -Consult Hospice -Pain control with IV Dil PRN, Percocet PRN and Home MsContin -Cont home steroids #Pancytopenia -Effect of chemotherapy Monitor #Chronic cancer pain -Opioids as above DVT prophy with SCDs as pt has low Platelets DNAR, discussed with pt Time with Patient: Greater than 30
[2017-07-05] MEDS ORDERED: PERPHENAZINE 4 MG TAB PO SCH (23:45)
[2017-07-06] MEDS: ONDANSETRON 4 MG/2 ML VIAL IVP PRN ×4 (00:24→16:27)
[2017-07-06] MEDS: MORPHINE SULFATE ER 30 MG TABLET PO SCH ×3 (00:45→22:18)
[2017-07-06] MEDS ORDERED: VANCOMYCIN 1,500 MG in SODIUM CHLORIDE 0.9% 250 ML IVPB ONE (01:00)
[2017-07-06] MEDS: DEXAMETHASONE 4 MG TAB PO SCH ×3 (01:41→16:29)
[2017-07-06] MEDS: PERPHENAZINE 4 MG TAB PO SCH ×3 (01:41→22:17)
[2017-07-06] MEDS: SENNOSIDES 8.6 MG TAB PO SCH ×3 (01:41→19:38)
[2017-07-06] MEDS: FLUoxetine HCL 20 MG CAP PO SCH ×3 (01:41→22:18)
[2017-07-06] MEDS: GABAPENTIN 400 MG CAP PO SCH ×4 (01:41→22:17)
[2017-07-06] MEDS ORDERED: HYDROmorphone 1 MG/ML 1 ML SYRINGE ONE (04:32)
[2017-07-06] MEDS ORDERED: HYDROmorphone 1 MG/ML 1 ML SYRINGE IVP PRN (04:38)
[2017-07-06 05:33] LABS: Anisocytosis Slight; Aty Lym Flag Slight; CH 31.5; CHCM 34.6; HCT 27.8 % (34.0-46.0); HDW 2.92; HGB 9.2 gm/dL (11.4-16.0); MCH 30.4 pg (25.0-35.0); MCHC 33.2 g/dL (31.0-37.0); MCV 91.4 fL (80.0-100.0); Mean Platelet Volume 7.9; RBC 3.04 m/uL (3.80-5.40); RDW 17.6 % (11.5-15.5); WBC (Perox) 0.89
[2017-07-06 05:34] LABS: WBC 0.9 k/uL (3.8-10.6)
[2017-07-06 05:42] LABS: Anion Gap 6 mmol/L; Blood Urea Nitrogen 19 mg/dL (7-17); Calcium 7.9 mg/dL (8.4-10.2); Carbon Dioxide 27 mmol/L (22-30); Chloride 96 mmol/L (98-107); Glucose 117 mg/dL (74-99); Non-African American GFR(MDRD) >60 (>60 ml/min/1.73 sqM); Potassium 4.1 mmol/L (3.5-5.1); Sodium 129 mmol/L (137-145)
[2017-07-06 06:00] LABS: Add Differential Manual Differential
[2017-07-06 06:01] LABS: Manual Review Performed
[2017-07-06] MEDS: VANCOMYCIN 1,500 MG in SODIUM CHLORIDE 0.9% 250 ML IVPB SCH ×2 (06:06→17:59)
[2017-07-06] MEDS: HYDROmorphone 1 MG/ML 1 ML SYRINGE IVP PRN ×5 (08:08→19:36)
[2017-07-06] MEDS: PANTOPRAZOLE 40 MG TABLET PO SCH (08:11)
[2017-07-06] MEDS: CEFEPIME 2 GM in SODIUM CHLORIDE 0.9% 50 ML IVPB SCH ×2 (08:11→16:26)
[2017-07-06] MEDS: ALPRAZolam 0.5 MG TAB PO PRN ×2 (11:07→19:36)
[2017-07-06 11:46] VITALS: BMI 32.6
[2017-07-06] MEDS: ACETAMINOPHEN TAB 325 MG TAB PO PRN (16:27)
--- NOTE | 2017-07-06 18:49 | P.PN ---
Subjective Principal diagnosis: Patient is seen and examined in follow-up for neutropenic fever 61-year-old female with significant past medical history of for small cell lung cancer currently receiving chemotherapy. Patient presented to the hospital due to 1-2 days of fevers along with productive cough shortness of breath and diarrhea. In the ED patient was found to be neutropenic and febrile, chest x- ray revealed right perihilar infiltrates and participated be due to her known small cell lung cancer however infectious infiltrates could not be ruled out. Patient was admitted for broad-spectrum antibiotic treatment and further workup. Patient was seen today with her daughter at bedside patient is considering hospice care however she preferred to discuss that with her oncologist and requesting to transfer to [facility]. Otherwise she is currently awake and alert still reporting some coughing and difficulty with breathing but otherwise denies any chest discomfort abdominal pain nausea or vomiting. I discussed her condition with the hospice nurse arrangements are being made for her to be transferred to [facility] where she normally receives her care. Family is not willing to take the patient home with hospice and are considering skilled nursing with hospice if the patient wishes to go down that route. Objective - Vital Signs Vital signs: Vital Signs Temp 97.9 F 07/06/17 15:00 Pulse 89 07/06/17 15:00 Resp 18 07/06/17 15:00 BP 133/62 07/06/17 15:00 Pulse Ox 94 L 07/06/17 15:00 Intake & Output 07/05/17 07/06/17 07/06/17 18:59 06:59 18:59 Intake Total 800 Balance 800 Weight 94.5 kg 94.5 kg Intake: IV 800 Sodium Chloride 0.9% 1, 300 000 ml @ 100 mls/hr IV . Q10H [facility] Rx#:[id number] Vancomycin 1,500 mg In 250 Sodium Chloride 0.9% 250 ml @ 125 mls/hr IVPB ONCE ONE Rx#:[id number] Vancomycin 1,500 mg In 250 Sodium Chloride 0.9% 250 ml @ 125 mls/hr IVPB Q12H [facility] Rx#:[id number] Other: Voiding Method Toilet Toilet - Exam Constitutional: vital signs stable, Not in acute distress, pleasant, conversant Lungs: Good breath sounds bilaterally, crackles around the right midlung, normal respiratory effort no use of accessory muscles Cardiovascular: Regular rate and rhythm, no murmurs, no gallops, no rubs, no peripheral edema Gastrointestinal: Soft, no tenderness to palpation, no palpable hepatosplenomegally, bowel sounds positive, no abdominal wall hernias Extremities: No digital cyanosis or clubbing, capillary refill is immediate over the toes and fingers tips, no calf muscle tenderness Psych: Alert, oriented to place, person and time Labs reviewed - Labs CBC & Chem 7: 07/06/17 05:10 07/06/17 05:10 Labs: Abnormal Lab Results - Last 24 Hours (Table) 07/05/17 07/05/17 07/06/17 Range/Units 21:15 21:15 05:10 WBC 0.9 L* (3.8-10.6) k/uL RBC 3.33 L (3.80-5.40) m/uL Hgb 10.2 L (11.4-16.0) gm/dL Hct 29.6 L (34.0-46.0) % RDW 17.0 H (11.5-15.5) % Plt Count 66 L D (150-450) k/uL Neutrophils # (Manual) 0.19 L (1.3-7.7) k/uL Lymphocytes # (Manual) 0.57 L (1.0-4.8) k/uL Nucleated RBCs 6 H (0-0) /100 WBC Sodium 131 L 129 L (137-145) mmol/L Chloride 96 L (98-107) mmol/L BUN 24 H 19 H (7-17) mg/dL Glucose 125 H 117 H (74-99) mg/dL Calcium 8.1 L 7.9 L (8.4-10.2) mg/dL Total Protein 5.5 L (6.3-8.2) g/dL Albumin 3.2 L (3.5-5.0) g/dL 07/06/17 Range/Units 05:10 WBC 0.9 L* (3.8-10.6) k/uL RBC 3.04 L (3.80-5.40) m/uL Hgb 9.2 L (11.4-16.0) gm/dL Hct 27.8 L (34.0-46.0) % RDW 17.6 H (11.5-15.5) % Plt Count 53 L (150-450) k/uL Neutrophils # (Manual) (1.3-7.7) k/uL Lymphocytes # (Manual) (1.0-4.8) k/uL Nucleated RBCs (0-0) /100 WBC Sodium (137-145) mmol/L Chloride (98-107) mmol/L BUN (7-17) mg/dL Glucose (74-99) mg/dL Calcium (8.4-10.2) mg/dL Total Protein (6.3-8.2) g/dL Albumin (3.5-5.0) g/dL Microbiology - Last 24 Hours (Table) 07/05/17 23:00 Urine Culture - Preliminary Urine,Clean Catch Assessment and Plan (1) Healthcare-associated pneumonia Narrative/Plan: Broad-spectrum antibiotics with vancomycin and cefepime especially in light of underlying neutropenic fever Status: Acute (2) Sepsis Status: Acute (3) Neutropenic fever Status: Acute (4) Hyponatremia Narrative/Plan: This could be multifactorial secondary to SIADH from her history of lung cancer versus acute with her underlying pneumonia Continue to monitor sodium level post-hydration Status: Acute (5) Pancytopenia due to chemotherapy Status: Acute (6) DVT prophylaxis Narrative/Plan: I will avoid pharmacologic DVT prophylaxis due to low platelet count with risk of bleeding Continue with SCDs Status: Acute (7) Lung cancer metastatic to bone Status: Acute Plan: Further workup revealed negative C. diff, negative rapid flu test. Continue with supportive care Patient evaluated for hospice care she qualifies for GIP symptom control as an inpatient Patient is leaning towards hospice care however I believe this decision could be made better with her regular oncologist at [facility] patient and family is in agreement we are in the process of initiating the transfer after stabilizing the patient. Continue with supportive care and broad-spectrum antibiotic for now Patient elected DNR/DNI status
[2017-07-06] MEDS ORDERED: SODIUM CHLORIDE 0.9% 1,000 ML IV ONE (18:50)
[2017-07-06] MEDS: SODIUM CHLORIDE 0.9% 1,000 ML IV SCH (22:19)
[2017-07-06 22:57] VITALS: TEMP 98.2
[2017-07-07] MEDS: CEFEPIME 2 GM in SODIUM CHLORIDE 0.9% 50 ML IVPB SCH ×2 (00:27→08:56)
[2017-07-07] MEDS: DEXAMETHASONE 4 MG TAB PO SCH ×2 (05:17→08:56)
[2017-07-07] MEDS: SODIUM CHLORIDE 0.9% 1,000 ML IV SCH (05:56)
[2017-07-07] MEDS: VANCOMYCIN 1,500 MG in SODIUM CHLORIDE 0.9% 250 ML IVPB SCH (06:08)
[2017-07-07] MEDS: ACETAMINOPHEN TAB 325 MG TAB PO PRN (07:39)
[2017-07-07 08:02] VITALS: BP 121/67; PULSE 76; RESP 18
[2017-07-07] MEDS: SENNOSIDES 8.6 MG TAB PO SCH ×2 (08:55→09:02)
[2017-07-07] MEDS: PERPHENAZINE 4 MG TAB PO SCH (08:55)
[2017-07-07] MEDS: FLUoxetine HCL 20 MG CAP PO SCH (08:55)
[2017-07-07] MEDS: GABAPENTIN 400 MG CAP PO SCH (08:55)
[2017-07-07] MEDS: PANTOPRAZOLE 40 MG TABLET PO SCH (08:56)
[2017-07-07] MEDS: MORPHINE SULFATE ER 30 MG TABLET PO SCH (08:58)
[2017-07-07] MEDS ORDERED: FILGRASTIM-SNDZ 480 MCG/0.8 ML SYRINGE SQ SCH (09:00)
--- NOTE | 2017-07-07 10:50 | P.DS ---
Providers Date of admission: 07/05/17 23:22 Expected date of discharge: 07/07/17 Attending physician: Priya Ng MD Consults: 07/06/17 18:48 Consult Physician Routine Consulting Provider: Thai Chavez Consult Reason/Comments: small cell lung cancer with mets Do you want consulting provider notified?: Yes Primary care physician: Oanh Bansal MD - Discharge Diagnosis(es) (1) Healthcare-associated pneumonia Status: Acute (2) Sepsis Status: Acute (3) Neutropenic fever Status: Acute (4) Hyponatremia Status: Acute (5) Pancytopenia due to chemotherapy Status: Acute (6) DVT prophylaxis Status: Acute (7) Lung cancer metastatic to bone Status: Acute Hospital Course: 61-year-old female with significant past medical history of for small cell lung cancer currently receiving chemotherapy. Patient presented to the hospital due to 1-2 days of fevers along with productive cough shortness of breath and diarrhea. In the ED patient was found to be neutropenic and febrile, chest x- ray revealed right perihilar infiltrates and participated be due to her known small cell lung cancer however infectious infiltrates could not be ruled out. Patient was admitted for broad-spectrum antibiotic treatment and further workup. patient was seen today, she is excited for the transfer, she feels better today with stable vital signs, denies any trouble breathing and chest pain. she is alert and awake today. Patient maintained on broad spectrum ABx on vanco and cefepime, cultures negative to date (urine and blood), vital signs are stable, and afebrile. Patient is considering hospice care however she preferred to discuss that with her oncologist and requested to be transferred to [facility]. Family is not willing to take the patient home with hospice and are considering retirement with hospice if the patient wishes to go down that route. labs are still pending from this morning. Constitutional: vital signs stable, Not in acute distress, pleasant, conversant Lungs: good breath sounds bilaterally , no wheezes, clear to percussion, normal respiratory effort no use of accessory muscles Cardiovascular: Regular rate and rhythm, no murmurs, no gallops, no rubs, no peripheral edema Gastrointestinal: Soft, no tenderness to palpation, no palpable, bowel sounds positive Extremities: No digital cyanosis or clubbing, no calf muscle tenderness, capillary refill is immediate Psych: Alert, oriented to place, person and time DVT PPX, on SCDs patient is a DNR/DNI status Patient will be transferred today to [facility] upon her request in stable clinical condition. More than 35 minutes were spent discharging this patient, and more than 50% of the time was spent in counseling the patient and family and in coordinating care. Patient Condition at Discharge: Serious Plan - Discharge Summary New Discharge Prescriptions: No Action Perphenazine [Trilafon] 2 mg PO BID FLUoxetine HCL 40 mg PO BID traZODone HCL [Desyrel] 100 mg PO HS PRN PRN Reason: Insomnia oxyCODONE-APAP 5-325MG [Percocet 5-325 mg] 1 tab PO Q4H PRN PRN Reason: Pain Pantoprazole [Protonix] 40 mg PO DAILY Morphine Sulfate ER [Ms Contin 30Mg] 30 mg PO Q12HR Gabapentin [Neurontin] 400 mg PO TID Sennosides [Senna] 8.6 mg PO BID Dexamethasone [Hexadrol] 4 mg PO Q8H Discharge Medication List FLUoxetine HCL 40 mg PO BID 05/14/17 [History] Perphenazine [Trilafon] 2 mg PO BID 05/14/17 [History] traZODone HCL [Desyrel] 100 mg PO HS PRN 05/22/17 [History] Dexamethasone [Hexadrol] 4 mg PO Q8H 06/15/17 [History] Gabapentin [Neurontin] 400 mg PO TID 06/15/17 [History] Morphine Sulfate ER [Ms Contin 30Mg] 30 mg PO Q12HR 06/15/17 [History] Pantoprazole [Protonix] 40 mg PO DAILY 06/15/17 [History] Sennosides [Senna] 8.6 mg PO BID 06/15/17 [History] oxyCODONE-APAP 5-325MG [Percocet 5-325 mg] 1 tab PO Q4H PRN 06/15/17 [History] Follow up Appointment(s)/Referral(s): Oanh Bansal MD [Primary Care Provider] - 1-2 days [facility], [NON-STAFF] - 1 Week Patient Instructions/Handouts: Sepsis (GEN), Neutropenia (GEN) Care Plan Goals (MU): Transfer to [facility] , per patient and family request, patient receives care mainly at that facility, and she would like to continue care under oncology team there. utilize ambulance for transfer Discharge Disposition: OTHER INSTITUTION NOT DEFINED
--- NOTE | 2017-07-07 16:33 | P.CONS ---
History of Present Illness - Reason for Consult Consult date: 07/07/17 SCLC Requesting physician: Karlee Fernández - Chief Complaint neutropenic fever - History of Present Illness Ms. Castellanos is a very pleasant female pt of [facility]. She just completed chemo and radiation about 11 days ago for recently diagnosed small cell lung cancer. Pt states that she started feeling tired and weak a few days ago, she started having fever, lost her appetite and had poor oral intake, nausea and vomiting. Today when seen pt is preparing for transfer to [facility]. She states hunger this AM, denies fever, chills, headache, oral irritation, sore throat, nausea, she has a cough but denies hemoptysis or purulent sputum, no abd pain, dysutria, hematuria, diarrhea or constipation, swelling or pain. Review of Systems 10 point ROS as stated in IH Past Medical History Past Medical History: Cancer, GERD/Reflux Additional Past Medical History / Comment(s): small cell lung ca. History of Any Multi-Drug Resistant Organisms: None Reported Past Surgical History: Hysterectomy, Tonsillectomy Past Anesthesia/Blood Transfusion Reactions: No Reported Reaction Past Psychological History: Bipolar, Depression Smoking Status: Former smoker Past Alcohol Use History: None Reported Past Drug Use History: None Reported - Past Family History Daughter(s) History Unknown: Yes Additional Family Medical History / Comment(s): nothing known Mother Family Medical History: Diabetes Mellitus Medications and Allergies Home Medications Medication Instructions Recorded Confirmed Type FLUoxetine HCL 40 mg PO BID 05/14/17 07/05/17 History Perphenazine [Trilafon] 2 mg PO BID 05/14/17 07/05/17 History traZODone HCL [Desyrel] 100 mg PO HS PRN 05/22/17 07/05/17 History Dexamethasone [Hexadrol] 4 mg PO Q8H 06/15/17 07/05/17 History Gabapentin [Neurontin] 400 mg PO TID 06/15/17 07/05/17 History Morphine Sulfate ER [Ms Contin 30 mg PO Q12HR 06/15/17 07/05/17 History 30Mg] Pantoprazole [Protonix] 40 mg PO DAILY 06/15/17 07/05/17 History Sennosides [Senna] 8.6 mg PO BID 06/15/17 07/05/17 History oxyCODONE-APAP 5-325MG [Percocet 1 tab PO Q4H PRN 06/15/17 07/05/17 History 5-325 mg] Allergies Allergy/AdvReac Type Severity Reaction Status Date / Time adhesive tape Allergy Rash/Hives Verified 07/05/17 21:16 bee venom protein (honey bee) Allergy Rash/Hives Verified 07/06/17 00:41 Sulfa (Sulfonamide Allergy Itching Verified 07/05/17 21:16 Antibiotics) Physical Exam Vitals: Vital Signs Temp Pulse Resp BP Pulse Ox 07/07/17 07:00 98.2 F 76 18 121/67 91 L 07/06/17 23:49 16 07/06/17 22:56 98.2 F 79 16 119/56 93 L Intake and Output 07/07/17 07/07/17 07/07/17 06:59 14:59 22:59 Other: Voiding Method Toilet # Voids 3 - Constitutional General appearance: cooperative, no acute distress, obese - EENT Eyes: anicteric sclerae, EOMI, normal appearance ENT: hearing grossly normal, normal oropharynx - Neck Neck: no lymphadenopathy - Respiratory Respiratory: bilateral: CTA - Cardiovascular Rhythm: regular Heart sounds: normal: S1, S2 Abnormal Heart Sounds: no systolic murmur, no diastolic murmur, no rub, no S3 Gallop, no S4 Gallop, no click, no other leg Peripheral Edema: bilateral: None - Gastrointestinal General gastrointestinal: no absent bowel sounds, no decreased bowel sounds, no distended, no hepatomegaly, no hyperactive bowel sounds, normal bowel sounds, no organomegaly, no rigid, no scaphoid, soft, no splenomegaly, no tenderness, no umbilical hernia, no ventral hernia - Integumentary Integumentary: pale - Neurologic Neurologic: CNII-XII intact - Musculoskeletal Musculoskeletal: strength equal bilaterally - Psychiatric Psychiatric: A&O x's 3, appropriate affect, intact judgment & insight Results CBC & Chem 7: 07/06/17 05:10 07/06/17 05:10 Labs: Microbiology - Last 24 Hours (Table) 07/05/17 23:00 Urine Culture - Final Urine,Clean Catch 07/05/17 21:15 Blood Culture - Preliminary Blood No Growth after 24 hours Chest x-ray: report reviewed Assessment and Plan (1) Neutropenic fever Narrative/Plan: Pancultures ordered, negative at 24 hours, empiric abx started, added zarxio this AM as it was confirmed pt did not receive GCSF. No fever since after admit. Cont to monitor CBC/ANC. Status: Acute (2) Pancytopenia due to chemotherapy Narrative/Plan: GCSF started for leukopenia/neutropenia No PRBC transfusion needed today. Platelets are ok for prophylactic dose anticoagulation, monitor CBC daily for changes, if plt <50K use SCDs. Status: Acute (3) Small cell lung cancer Narrative/Plan: Pt just recently completed chemo and sterotactic radiation x 5 doses at [facility]. She will see her primary Oncologist for follow up plan of care s/p treatment. Status: Chronic
[2017-07-08] MEDS ORDERED: VANCOMYCIN TROUGH DUE 1 EACH MISC MISCELLANE ONE (05:00)
== END 2017-07-07 10:00 | disposition short-term general hospital (02) | DRG 871 ==
LOC: EC 20:51 → 5ONC 23:22
PROVIDERS: ADMIT Internal Medicine; ATTEND Internal Medicine
DX: A41.9 Sepsis, unspecified organism (principal); J18.9 Pneumonia, unspecified organism; D61.810 Antineoplastic chemotherapy induced pancytopenia; C79.51 Secondary malignant neoplasm of bone; C34.90 Malignant neoplasm of unspecified part of unspecified bronchus or lung; E87.1 Hypo-osmolality and hyponatremia; R50.81 Fever presenting with conditions classified elsewhere; T45.1X5A Adverse effect of antineoplastic and immunosuppressive drugs, initial encounter; Z66 Do not resuscitate; Y95 Nosocomial condition; K21.9 Gastro-esophageal reflux disease without esophagitis; G89.3 Neoplasm related pain (acute) (chronic); F31.9 Bipolar disorder, unspecified; Z79.899 Other long term (current) drug therapy; Z90.49 Acquired absence of other specified parts of digestive tract; Z90.710 Acquired absence of both cervix and uterus; Z87.891 Personal history of nicotine dependence; Z83.3 Family history of diabetes mellitus; Z79.891 Long term (current) use of opiate analgesic; Z91.030 Bee allergy status; Z88.2 Allergy status to sulfonamides; Z91.048 Other nonmedicinal substance allergy status; Z92.3 Personal history of irradiation
CPT/HCPCS: 36415; 71010; 80048; 80053; 81003; 83605; 85025; 87040; 87086; 87324; 87502; 96361; 96365; 96367; 96375; 99285

== ENCOUNTER 2017-11-25 14:32 | Emergency (ER) | payer MEDICARE, OTHER ==
[2017-11-25 14:42] VITALS: RESP 18
[2017-11-25] MEDS ORDERED: HYDROmorphone 0.5 MG/0.5 ML SYRINGE IVP STA (14:56)
--- NOTE | 2017-11-25 14:59 | ED ---
Fall HPI - General Chief Complaint: Fall Stated Complaint: Fall/Hip pain Time Seen by Provider: 11/25/17 14:44 Source: patient, family Mode of arrival: wheelchair - History of Present Illness Initial Comments: This is a 62-year-old female with a history of stage IV lung cancer who presents emergency Department after a fall yesterday. She states that she's got bilateral rib pain and this is what is concerning her the most. She states it's worse with breathing and coughing. She states that yesterday she was walking in her room and she was attempting to use the bed as something to stabilize her however she fell onto her left side. She was able to get up with assistance and has been walking however states she has been gradually getting very weak and having more difficulty with ambulation at home. She states that this is been worsening over the last few days. She does admit to some chronic weakness in her left lower extremity however the right lower Chevys seems to be having more weakness than normal. She denies any weakness in her upper extremities. No cough or shortness of breath. No dysuria. She states that she 's here because of the rib pain. She does admit to bilateral shoulder pain however this has been chronic as well as chronic low back pain and hip pain. She states the only new thing is the rib pain - Related Data Home Medications Medication Instructions Recorded Confirmed FLUoxetine HCL [PROzac] 40 mg PO BID 11/25/17 11/25/17 Gabapentin [Neurontin] 400 mg PO TID 11/25/17 11/25/17 LORazepam [Ativan] 1 mg PO TID PRN 11/25/17 11/25/17 Perphenazine(Trilafon) 2 mg PO BID 11/25/17 11/25/17 traZODone HCL 50 mg PO HS 11/25/17 11/25/17 Previous Rx's Medication Instructions Recorded Nitrofurantoin Monohyd/M-Cryst 100 mg PO Q12HR #14 cap 11/25/17 [Macrobid] Allergies Allergy/AdvReac Type Severity Reaction Status Date / Time adhesive tape Allergy Rash/Hives Verified 11/25/17 15:51 bee venom protein (honey bee) Allergy Rash/Hives Verified 11/25/17 15:51 Sulfa (Sulfonamide Allergy Itching Verified 11/25/17 15:51 Antibiotics) Review of Systems ROS Statement: Those systems with pertinent positive or pertinent negative responses have been documented in the HPI. ROS Other: All systems not noted in ROS Statement are negative. Past Medical History Past Medical History: Cancer, GERD/Reflux Additional Past Medical History / Comment(s): small cell lung ca. History of Any Multi-Drug Resistant Organisms: None Reported Past Surgical History: Hysterectomy, Tonsillectomy Past Anesthesia/Blood Transfusion Reactions: No Reported Reaction Past Psychological History: Bipolar, Depression Smoking Status: Former smoker Past Alcohol Use History: None Reported Past Drug Use History: None Reported - Past Family History Daughter(s) History Unknown: Yes Additional Family Medical History / Comment(s): nothing known Mother Family Medical History: Diabetes Mellitus General Exam - General Exam Comments Initial Comments: Constitutional: Awake alert Appears comfortable Head: Normocephalic atraumatic Eyes: no conjunctival injection No scleral icterus EOMI, pupils are 4 mm and reactive bilaterally Neck: No JVD Supple, no midline tenderness Heart: Regular rate rhythm normal S1-S2 no murmurs Lungs: Clear to auscultation bilaterally No wheezing No rales, there is no ecchymosis to the chest wall, tenderness to palpation bilateral lower ribs Abdomen: Soft nondistended nontender Extremities: Non edematous DP pulses intact Radial pulses intact, pelvis is stable, no pain with log rolling of the lower extremities Neuro: A&Ox3, the patient has 5 out of 5 strength in her upper extremities, the patient is very minimal effort against gravity on the left lower extremity, right lower Chevys she is able to hold up for a few seconds before he gets the gurney, sensation intact to light touch No focal neurologic deficits Psych: Appropriate mood and affect Limitations: no limitations Course Vital Signs 11/25/17 11/25/17 14:34 16:49 Temperature 97.8 F 98.1 F Pulse Rate 97 84 Respiratory 18 18 Rate Blood Pressure 133/74 131/66 O2 Sat by Pulse 95 95 Oximetry Medical Decision Making - Medical Decision Making This is a 62-year-old who came in for worsening weakness with ambulation and a fall. X-rays reviewed and unremarkable. The patient's blood work did reveal a urinary tract infection. I discussed with the patient and the daughter at bedside about keep her in the hospital or treating her at home. The family states that they have adequate help at home to help her if she becomes weak home and would like to take her home. The patient agreed with this. I'm going to start on Macrobid twice a day. Told her that she had worsening symptoms she needs to return the emergency department. She agreed. All questions were answered. - Lab Data Result diagrams: 11/25/17 15:02 11/25/17 15:02 Lab Results 11/25/17 11/25/17 11/25/17 Range/Units 15: 15:02 16:00 WBC 7.3 (3.8-10.6) k/uL RBC 4.26 (3.80-5.40) m/uL Hgb 12.1 (11.4-16.0) gm/dL Hct 37.8 (34.0-46.0) % MCV 88.8 (80.0-100.0) fL MCH 28.5 (25.0-35.0) pg MCHC 32.1 (31.0-37.0) g/dL RDW 14.8 (11.5-15.5) % Plt Count 187 (150-450) k/uL Neutrophils % 75 % Lymphocytes % 13 % Monocytes % 6 % Eosinophils % 3 % Basophils % 0 % Neutrophils # 5.4 (1.3-7.7) k/uL Lymphocytes # 1.0 (1.0-4.8) k/uL Monocytes # 0.4 (0-1.0) k/uL Eosinophils # 0.2 (0-0.7) k/uL Basophils # 0.0 (0-0.2) k/uL Hypochromasia Slight Sodium 138 (137-145) mmol/L Potassium 4.5 (3.5-5.1) mmol/L Chloride 103 (98-107) mmol/L Carbon Dioxide 23 (22-30) mmol/L Anion Gap 12 mmol/L BUN 17 (7-17) mg/dL Creatinine 0.70 (0.52-1.04) mg/dL Est GFR (MDRD) Af Amer >60 (>60 ml/min/1.73 sqM) Est GFR (MDRD) Non-Af >60 (>60 ml/min/1.73 sqM) Glucose 120 H (74-99) mg/dL Calcium 9.1 (8.4-10.2) mg/dL Total Bilirubin 0.5 (0.2-1.3) mg/dL AST 133 H (14-36) U/L ALT 76 H (9-52) U/L Alkaline Phosphatase 169 H (38-126) U/L Total Protein 6.9 (6.3-8.2) g/dL Albumin 3.7 (3.5-5.0) g/dL Urine Color Dark Yellow Urine Appearance Cloudy H (Clear) Urine pH 6.0 (5.0-8.0) Ur Specific [place] 1.029 (1.001-1.035) Urine Protein 1+ H (Negative) Urine Glucose (UA) Negative (Negative) Urine Ketones Negative (Negative) Urine Blood Negative (Negative) Urine Nitrite Negative (Negative) Urine Bilirubin Negative (Negative) Urine Urobilinogen 2.0 (<2.0) mg/dL Ur Leukocyte Esterase Large H (Negative) Urine RBC 5 (0-5) /hpf Urine WBC 153 H (0-5) /hpf Ur Squamous Epith Cells <1 (0-4) /hpf Urine Mucus Many H (None) /hpf Disposition Clinical Impression: UTI (urinary tract infection), Arthralgia Disposition: HOME SELF-CARE Condition: Stable Instructions: Urinary Tract Infection in Women (ED), Fall Prevention for Older Adults (ED) Prescriptions: Nitrofurantoin Monohyd/M-Cryst [Macrobid] 100 mg PO Q12HR #14 cap Referrals: Oanh Bansal MD [Primary Care Provider] - 1-2 days
[2017-11-25 15:10] LABS: Basophils % (A) 0 %; Eosinophils # (A) 0.2 k/uL (0-0.7); Eosinophils % (A) 3 %; HCT 37.8 % (34.0-46.0); HGB 12.1 gm/dL (11.4-16.0); Hypochromasia Slight; Lymphocytes % (A) 13 %; MCH 28.5 pg (25.0-35.0); MCHC 32.1 g/dL (31.0-37.0); MCV 88.8 fL (80.0-100.0); Mean Platelet Volume 8.7; Monocytes # (A) 0.4 k/uL (0-1.0); Monocytes % (A) 6 %; Neutrophils # (A) 5.4 k/uL (1.3-7.7); Neutrophils % (A) 75 %; Platelet Count 187 k/uL (150-450); RBC 4.26 m/uL (3.80-5.40); RDW 14.8 % (11.5-15.5); WBC 7.3 k/uL (3.8-10.6)
[2017-11-25 15:21] LABS: ALT 76 U/L (9-52); AST 133 U/L (14-36); Albumin 3.7 g/dL (3.5-5.0); Alkaline Phosphatase 169 U/L (38-126); Anion Gap 12 mmol/L; Blood Urea Nitrogen 17 mg/dL (7-17); Calcium 9.1 mg/dL (8.4-10.2); Carbon Dioxide 23 mmol/L (22-30); Chloride 103 mmol/L (98-107); Glucose 120 mg/dL (74-99); Potassium 4.5 mmol/L (3.5-5.1); Sodium 138 mmol/L (137-145); Total Bilirubin 0.5 mg/dL (0.2-1.3); Total Protein 6.9 g/dL (6.3-8.2)
--- NOTE | 2017-11-25 15:52 | XR ---
EXAMINATION TYPE: XR Hip LT and AP Pelvis DATE OF EXAM: 11/25/2017 COMPARISON: NONE HISTORY: Left hip pain after fall TECHNIQUE: A single AP view of the pelvis is obtained. Two views of the left hip are obtained. FINDINGS: There is no acute fracture/dislocation evident in the pelvis. The hip and sacroiliac join ts appear symmetric and unremarkable. The overlying soft tissue appears unremarkable. Mild to modera te bilateral femoral acetabular arthropathy is seen as joint space narrowing and acetabular roof scle rosis. Moderate degenerative changes of the lumbosacral junction are also noted. Two views of left hip show no acute fracture or dislocation. No focal lytic or sclerotic lesion seen in the proximal left femur. The overlying soft tissue is unremarkable. IMPRESSION: There is no acute fracture or dislocation in the pelvis or left hip. Mild to moderate bi lateral femoral acetabular arthropathy.
--- NOTE | 2017-11-25 15:54 | XR ---
EXAMINATION TYPE: XR ribs bilat w pa chest xray DATE OF EXAM: 11/25/2017 COMPARISON: 07/05/2017 HISTORY: Fall with rib pain. TECHNIQUE: Frontal view of the chest with bilateral frontal and lateral rib views were obtained. FINDINGS: Incidental note is made of an azygos fissure and lobe. Left-sided Mediport terminates in th e cavoatrial junction. Linear right midlung subsegmental atelectasis is seen. The previously seen patchy right hilar density now extends superiorly involving the right paratrachea l space and may represent interval growth of the patient's known lung carcinoma. Cardiomediastinal si lhouette is within normal limits. No evidence of displaced rib fracture is identified. Multilevel moderate degenerative changes of the thoracic spine are noted. IMPRESSION: 1. No evidence of displaced rib fracture. 2. Interval the right hilar region and paratracheal space that may represent interval growth of the p atient's known right lung carcinoma.
--- NOTE | 2017-11-25 16:00 | XR ---
Lumbar spine HISTORY: Trauma and pain, metastatic disease 3 views of the lumbar spine correlated to prior exam 05/17/2017 plain film as well as lumbar MRI 017 Lumbar vertebral bodies show preserved height and alignment. Bone mineralization not significantly ch anged, mineralization is reduced. There is multilevel spondylosis. Sclerosis present in the posterior elements of the lower lumbar spine compatible with facet arthropathy. Disc spaces relatively maintai sofya. IMPRESSION: No evident pathologic fracture. Lumbar spondylosis, no subluxation.
[2017-11-25 16:35] LABS: Appearance,Urine Cloudy (Clear); Bilirubin,Urine Negative (Negative); Blood,Urine Negative (Negative); Color,Urine Dark Yellow; Glucose,Urine (UA) Negative (Negative); Ketones,Urine Negative (Negative); Leukocyte Esterase,Urine Large (Negative); Mucus,Urine Many /hpf; Nitrite,Urine Negative (Negative); Protein,Urine 1+ (Negative); RBC,Urine 5 /hpf (0-5); Specific Gravity,Urine 1.029 (1.001-1.035); Squamous Epithelial Cell,Urine <1 /hpf (0-4); WBC,Urine 153 /hpf (0-5)
[2017-11-25 16:50] VITALS: BP 131/66; PULSE 84; TEMP 98.1
== END 2017-11-25 16:50 | disposition home or self-care (01) ==
LOC: EC 14:32
DX: N39.0 Urinary tract infection, site not specified (principal); R07.81 Pleurodynia; M25.511 Pain in right shoulder; M25.512 Pain in left shoulder; M54.5 Low back pain; M25.552 Pain in left hip; K21.9 Gastro-esophageal reflux disease without esophagitis; F31.9 Bipolar disorder, unspecified; Z87.891 Personal history of nicotine dependence; Z85.118 Personal history of other malignant neoplasm of bronchus and lung; Z79.899 Other long term (current) drug therapy; Z88.2 Allergy status to sulfonamides; Z91.030 Bee allergy status; Z91.048 Other nonmedicinal substance allergy status; W19.XXXA Unspecified fall, initial encounter
CPT/HCPCS: 36415; 80053; 85025; 81001; 71111; 72100; 73502; 99283; 96374; J1170

== ENCOUNTER 2017-11-28 10:51 | Inpatient (IN) | payer MEDICARE, OTHER ==
[2017-11-28] MEDS ORDERED: SODIUM CHLORIDE 0.9% 1,000 ML IV ONE (11:19)
[2017-11-28] MEDS ORDERED: IPRATROPIUM-ALBUTEROL 3 ML NEB INHALATION STA (11:19)
[2017-11-28] MEDS ORDERED: HYDROmorphone 0.5 MG/0.5 ML SYRINGE IVP STA (11:19)
[2017-11-28 11:40] LABS: Basophils % (A) 0 %; Eosinophils # (A) 0.3 k/uL (0-0.7); Eosinophils % (A) 6 %; HCT 39.6 % (34.0-46.0); HGB 12.7 gm/dL (11.4-16.0); Hypochromasia Moderate; Lymphocytes # (A) 0.6 k/uL (1.0-4.8); Lymphocytes % (A) 11 %; MCH 28.7 pg (25.0-35.0); MCV 89.7 fL (80.0-100.0); Mean Platelet Volume 8.5; Monocytes # (A) 0.3 k/uL (0-1.0); Monocytes % (A) 6 %; Neutrophils # (A) 4.3 k/uL (1.3-7.7); Neutrophils % (A) 74 %; Platelet Count 162 k/uL (150-450); RBC 4.42 m/uL (3.80-5.40); RDW 14.5 % (11.5-15.5); WBC 5.8 k/uL (3.8-10.6)
[2017-11-28 11:50] LABS: Partial Thromboplastin Time 22.3 sec (22.0-30.0); Prothrombin Time 10.2 sec (9.0-12.0)
[2017-11-28 11:54] LABS: ALT 84 U/L (9-52); AST 149 U/L (14-36); Albumin 3.5 g/dL (3.5-5.0); Alkaline Phosphatase 187 U/L (38-126); Anion Gap 10 mmol/L; Blood Urea Nitrogen 17 mg/dL (7-17); Calcium 8.8 mg/dL (8.4-10.2); Carbon Dioxide 24 mmol/L (22-30); Chloride 106 mmol/L (98-107); Glucose 104 mg/dL (74-99); Potassium 4.2 mmol/L (3.5-5.1); Sodium 140 mmol/L (137-145); Total Bilirubin 0.4 mg/dL (0.2-1.3); Total Protein 6.7 g/dL (6.3-8.2)
[2017-11-28 12:13] LABS: Creatine Kinase MB 0.4 ng/mL (0.0-2.4); Troponin I <0.012 ng/mL (0.000-0.034)
--- NOTE | 2017-11-28 12:16 | XR ---
EXAMINATION TYPE: XR chest 2V DATE OF EXAM: 11/28/2017 HISTORY: Cough. REFERENCE: Previous study dated 11/25/2017. FINDINGS: A MediPort has been inserted. Its tip is in the superior vena cava. There is no evidence of pneumothorax. Masslike density in the right suprahilar region remains, unchanged in appearance. The lungs are other pradhan clear. Pleural spaces are clear. Heart is mildly prominent. IMPRESSION: 1. MASSLIKE DENSITY IN THE SUPRAHILAR REGION ON THE RIGHT. 2. MILD CARDIOMEGALY.
--- NOTE | 2017-11-28 12:20 | ED ---
General Adult HPI - General Chief complaint: Recheck/Abnormal Lab/Rx Stated complaint: UTI Time Seen by Provider: 11/28/17 11:09 Source: patient, EMS Mode of arrival: EMS Limitations: physical limitation - History of Present Illness Initial comments: Is a 62-year-old female with a history of end-stage lung cancer who presents emergency department for generalized weakness, multiple falls, decreased urine output, and cough. The patient states that she has gradually worsened over the last few days. She was seen in the ER a few days ago and diagnosed with urinary tract infection. She was treated with antibiotics and sent home with family. At that time she felt comfortable going home with her family however she has been gradually worsening. She has noticed that her urine has been darker. She denies any fevers or chills. She states she has generalized body aches. Denies any other acute complaints at this time. - Related Data Home Medications Medication Instructions Recorded Confirmed FLUoxetine HCL [PROzac] 40 mg PO BID 11/25/17 11/28/17 Gabapentin [Neurontin] 400 mg PO TID PRN 11/25/17 11/28/17 LORazepam [Ativan] 1 mg PO TID PRN 11/25/17 11/28/17 Perphenazine(Trilafon) 2 mg PO BID 11/25/17 11/28/17 traZODone HCL 50 mg PO HS 11/25/17 11/28/17 Morphine Sulfate ER [Ms Contin 30 mg PO Q12HR 11/28/17 11/28/17 30Mg] fentaNYL 25MCG/HR PATCH [Duragesic 1 patch TRANSDERM Q72H 11/28/17 11/28/17 25MCG/HR] oxyCODONE-APAP 5-325MG [Percocet 1 tab PO Q4HR PRN 11/28/17 11/28/17 5-325 mg] Previous Rx's Medication Instructions Recorded Nitrofurantoin Monohyd/M-Cryst 100 mg PO Q12HR #14 cap 11/25/17 [Macrobid] Allergies Allergy/AdvReac Type Severity Reaction Status Date / Time adhesive tape Allergy Rash/Hives Verified 11/28/17 12:20 bee venom protein (honey bee) Allergy Rash/Hives Verified 11/28/17 12:20 Sulfa (Sulfonamide Allergy Itching Verified 11/28/17 12:20 Antibiotics) Review of Systems ROS Statement: Those systems with pertinent positive or pertinent negative responses have been documented in the HPI. ROS Other: All systems not noted in ROS Statement are negative. Past Medical History Past Medical History: Cancer, GERD/Reflux Additional Past Medical History / Comment(s): small cell lung ca to back and liver History of Any Multi-Drug Resistant Organisms: None Reported Past Surgical History: Hysterectomy, Tonsillectomy Past Anesthesia/Blood Transfusion Reactions: No Reported Reaction Past Psychological History: Bipolar, Depression Smoking Status: Former smoker Past Alcohol Use History: None Reported Past Drug Use History: None Reported - Past Family History Daughter(s) History Unknown: Yes Additional Family Medical History / Comment(s): nothing known Mother Family Medical History: Diabetes Mellitus General Exam - General Exam Comments Initial Comments: Constitutional: Awake alert patient appears sleepy but able to answer questions appropriately Head: Normocephalic atraumatic Eyes: no conjunctival injection No scleral icterus EOMI, no conjunctival pallor Neck: No JVD Supple Heart: Regular rate rhythm normal S1-S2 no murmurs Lungs: There is bilateral wheezing No rales Abdomen: Soft nondistended nontender Extremities: Non edematous DP pulses intact Radial pulses intact Neuro: A&Ox3 No focal neurologic deficits Psych: Appropriate mood and affect Limitations: physical limitation Course Vital Signs 11/28/17 11/28/17 11/28/17 11:04 11:54 12:06 Temperature 98.1 F Pulse Rate 92 92 98 Respiratory 20 Rate Blood Pressure 140/80 O2 Sat by Pulse 92 L Oximetry EKG Findings - EKG Comments: EKG Findings:: EKG showing normal sinus rhythm with a rate of 88. No abnormal ST segment changes or tumor. QTC 471. Other intervals normal. No ectopy. Medical Decision Making - Medical Decision Making This is a 62-year-old female who presented for generalized weakness. She was found to have a persistent UTI despite Macrobid at home. Patient was given ago dose of Rocephin and will stay for failed outpatient treatment. I spoke with Dr. Rahamn who accepts the admission. - Lab Data Result diagrams: 11/28/17 11:29 11/28/17 11:29 Lab Results 11/28/17 11/28/17 11/28/17 Range/Units 11:29 11:29 11:29 WBC 5.8 (3.8-10.6) k/uL RBC 4.42 (3.80-5.40) m/uL Hgb 12.7 (11.4-16.0) gm/dL Hct 39.6 (34.0-46.0) % MCV 89.7 (80.0-100.0) fL MCH 28.7 (25.0-35.0) pg MCHC 32.0 (31.0-37.0) g/dL RDW 14.5 (11.5-15.5) % Plt Count 162 (150-450) k/uL Neutrophils % 74 % Lymphocytes % 11 % Monocytes % 6 % Eosinophils % 6 % Basophils % 0 % Neutrophils # 4.3 (1.3-7.7) k/uL Lymphocytes # 0.6 L (1.0-4.8) k/uL Monocytes # 0.3 (0-1.0) k/uL Eosinophils # 0.3 (0-0.7) k/uL Basophils # 0.0 (0-0.2) k/uL Hypochromasia Moderate PT (9.0-12.0) sec INR (<1.2) APTT (22.0-30.0) sec Sodium 140 (137-145) mmol/L Potassium 4.2 (3.5-5.1) mmol/L Chloride 106 (98-107) mmol/L Carbon Dioxide 24 (22-30) mmol/L Anion Gap 10 mmol/L BUN 17 (7-17) mg/dL Creatinine 0.73 (0.52-1.04) mg/dL Est GFR (MDRD) Af Amer >60 (>60 ml/min/1.73 sqM) Est GFR (MDRD) Non-Af >60 (>60 ml/min/1.73 sqM) Glucose 104 H (74-99) mg/dL Plasma Lactic Acid [place] (0.7-2.0) mmol/L Calcium 8.8 (8.4-10.2) mg/dL Magnesium 2.0 (1.6-2.3) mg/dL Total Bilirubin 0.4 (0.2-1.3) mg/dL AST 149 H (14-36) U/L ALT 84 H (9-52) U/L Alkaline Phosphatase 187 H (38-126) U/L CK-MB (CK-2) 0.4 (0.0-2.4) ng/mL Troponin I <0.012 (0.000-0.034) ng/mL Total Protein 6.7 (6.3-8.2) g/dL Albumin 3.5 (3.5-5.0) g/dL Urine Color Urine Appearance (Clear) Urine pH (5.0-8.0) Ur Specific [place] (1.001-1.035) Urine Protein (Negative) Urine Glucose (UA) (Negative) Urine Ketones (Negative) Urine Blood (Negative) Urine Nitrite (Negative) Urine Bilirubin (Negative) Urine Urobilinogen (<2.0) mg/dL Ur Leukocyte Esterase (Negative) Urine RBC (0-5) /hpf Urine WBC (0-5) /hpf Ur Squamous Epith Cells (0-4) /hpf Urine Bacteria (None) /hpf Urine Mucus (None) /hpf 11/28/17 11/28/17 11/28/17 Range/Units 11:29 11:29 12:30 WBC (3.8-10.6) k/uL RBC (3.80-5.40) m/uL Hgb (11.4-16.0) gm/dL Hct (34.0-46.0) % MCV (80.0-100.0) fL MCH (25.0-35.0) pg MCHC (31.0-37.0) g/dL RDW (11.5-15.5) % Plt Count (150-450) k/uL Neutrophils % % Lymphocytes % % Monocytes % % Eosinophils % % Basophils % % Neutrophils # (1.3-7.7) k/uL Lymphocytes # (1.0-4.8) k/uL Monocytes # (0-1.0) k/uL Eosinophils # (0-0.7) k/uL Basophils # (0-0.2) k/uL Hypochromasia PT 10.2 (9.0-12.0) sec INR 1.0 (<1.2) APTT 22.3 (22.0-30.0) sec Sodium (137-145) mmol/L Potassium (3.5-5.1) mmol/L Chloride (98-107) mmol/L Carbon Dioxide (22-30) mmol/L Anion Gap mmol/L BUN (7-17) mg/dL Creatinine (0.52-1.04) mg/dL Est GFR (MDRD) Af Amer (>60 ml/min/1.73 sqM) Est GFR (MDRD) Non-Af (>60 ml/min/1.73 sqM) Glucose (74-99) mg/dL Plasma Lactic Acid [place] 1.1 (0.7-2.0) mmol/L Calcium (8.4-10.2) mg/dL Magnesium (1.6-2.3) mg/dL Total Bilirubin (0.2-1.3) mg/dL AST (14-36) U/L ALT (9-52) U/L Alkaline Phosphatase (38-126) U/L CK-MB (CK-2) (0.0-2.4) ng/mL Troponin I (0.000-0.034) ng/mL Total Protein (6.3-8.2) g/dL Albumin (3.5-5.0) g/dL Urine Color Dark Brown Urine Appearance Cloudy H (Clear) Urine pH 6.0 (5.0-8.0) Ur Specific [place] 1.031 (1.001-1.035) Urine Protein 1+ H (Negative) Urine Glucose (UA) Negative (Negative) Urine Ketones Trace H (Negative) Urine Blood Small H (Negative) Urine Nitrite Negative (Negative) Urine Bilirubin Negative (Negative) Urine Urobilinogen 3.0 (<2.0) mg/dL Ur Leukocyte Esterase Large H (Negative) Urine RBC 59 H (0-5) /hpf Urine WBC >182 H (0-5) /hpf Ur Squamous Epith Cells 8 H (0-4) /hpf Urine Bacteria Occasional H (None) /hpf Urine Mucus Many H (None) /hpf Disposition Clinical Impression: UTI (urinary tract infection), Failure of outpatient treatment Disposition: ADMITTED IP TO THIS HOSP Condition: Stable
[2017-11-28 12:47] LABS: Appearance,Urine Cloudy (Clear); Bacteria,Urine Occasional /hpf; Bilirubin,Urine Negative (Negative); Blood,Urine Small (Negative); Color,Urine Dark Brown; Glucose,Urine (UA) Negative (Negative); Ketones,Urine Trace (Negative); Leukocyte Esterase,Urine Large (Negative); Mucus,Urine Many /hpf; Nitrite,Urine Negative (Negative); Protein,Urine 1+ (Negative); RBC,Urine 59 /hpf (0-5); Specific Gravity,Urine 1.031 (1.001-1.035); Squamous Epithelial Cell,Urine 8 /hpf (0-4); WBC,Urine >182 /hpf (0-5)
[2017-11-28] MEDS ORDERED: cefTRIAXone IN SWFI 1,000 MG/10 ML SYRINGE IVP STA (12:49)
[2017-11-28] MEDS ORDERED: oxyCODONE-APAP 5-325MG 1 EACH TAB PO STA (12:55)
[2017-11-28] MEDS ORDERED: NALOXONE 0.4 MG/ML 1 ML VIAL IV PRN ×2 (12:58→13:48)
[2017-11-28] MEDS ORDERED: ACETAMINOPHEN TAB 325 MG TAB PO PRN (12:58)
[2017-11-28] MEDS ORDERED: ALPRAZolam 0.25 MG TAB PO PRN (13:48)
[2017-11-28] MEDS ORDERED: ONDANSETRON 4 MG/2 ML VIAL IVP PRN (13:48)
[2017-11-28] MEDS ORDERED: DOCUSATE 100 MG CAP PO PRN (13:48)
[2017-11-28] MEDS ORDERED: MELATONIN 5 MG TABLET PO PRN (13:51)
[2017-11-28] MEDS ORDERED: CALCIUM CARBONATE 500 MG CHEWABLE PO PRN (13:51)
[2017-11-28] MEDS ORDERED: GABAPENTIN 400 MG CAP PO PRN (13:51)
[2017-11-28 13:53] VITALS: BMI 31.9
[2017-11-28] MEDS: SODIUM CHLORIDE 0.45% 1,000 ML IV SCH (14:10)
--- NOTE | 2017-11-28 14:12 | P.HPIM ---
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 She's been seen in the ER a few days prior secondary to falls and weakness and was diagnosed with urinary tract infection. She was started on Macrodantin secondary to a Bactrim ALLERGY. She did not improve so she represented to the ER. She underwent an extensive evaluation. Her vital signs are found to be within limits. Laboratory analysis revealed elevated liver enzymes which are unchanged from June of this year and a urinary tract infection. She was given IV fluids and a dose of Rocephin. Arrangements are made for admission to the general medical floor for failed outpatient treatment of UTI. Patient seen and examined at bedside with daughter present. They state for the last several weeks she has been more weak and fatigued. She has been falling at home. She uses her walker to take a few steps. She describes decreased appetite and weight loss they are unsure the exact amount. She also complains of generalized pain with the worst being in her hips and back. She's been taking fentanyl, MS Contin, and Percocet at home without relief. She also takes Neurontin. She complains of a dry mouth. She is not having any dysuria or urinary frequency, but she is not going to the bathroom often. She states her abdomen does not hurt when she pressed on her bladder. She denies any nausea or vomiting. Her last bowel movement was approximately 3 days ago. She denies any unusual coughing or shortness of breath but her wheezes getting worse. She's not had any fevers but she has been diaphoretic. She has a known history of stage IV lung cancer. Her last chemo was 2016. She elected to not receive any other chemo. At that point in time her oncologist since that her options were chemotherapy or hospice. Apparently they wanted to do prophylactic whole brain radiation as well but the patient declined. Currently her daughter known agreement that they need more help at home. They are highly considering hospice or palliative care after discharge. They do have a hospital bed that they got from the [facility]. Review of Systems Pertinent positives and negatives as per HPI, remainder of 12 point review of systems is negative. Past Medical History Past Medical History: Cancer, GERD/Reflux Additional Past Medical History / Comment(s): small cell lung ca to back, hips and liver s/p chemo and radiation lat chemo 10/05/2017 History of Any Multi-Drug Resistant Organisms: None Reported Past Surgical History: Hysterectomy, Tonsillectomy Additional Past Surgical History / Comment(s): mediport Past Anesthesia/Blood Transfusion Reactions: No Reported Reaction Past Psychological History: Bipolar, Depression Smoking Status: Former smoker Past Alcohol Use History: None Reported Past Drug Use History: None Reported Additional History: living with daughter using a walker and wheelchair, has a hospital bed. - Past Family History Daughter(s) History Unknown: Yes Additional Family Medical History / Comment(s): nothing known Mother Family Medical History: Diabetes Mellitus Medications and Allergies Home Medications Medication Instructions Recorded Confirmed Type FLUoxetine HCL [PROzac] 40 mg PO BID 11/25/17 11/28/17 History Gabapentin [Neurontin] 400 mg PO TID PRN 11/25/17 11/28/17 History LORazepam [Ativan] 1 mg PO TID PRN 11/25/17 11/28/17 History Nitrofurantoin Monohyd/M-Cryst 100 mg PO Q12HR #14 cap 11/25/17 11/28/17 Rx [Macrobid] Perphenazine(Trilafon) 2 mg PO BID 11/25/17 11/28/17 History traZODone HCL 50 mg PO HS 11/25/17 11/28/17 History Morphine Sulfate ER [Ms Contin 30 mg PO Q12HR 11/28/17 11/28/17 History 30Mg] fentaNYL 25MCG/HR PATCH [Duragesic 1 patch TRANSDERM Q72H 11/28/17 11/28/17 History 25MCG/HR] oxyCODONE-APAP 5-325MG [Percocet 1 tab PO Q4HR PRN 11/28/17 11/28/17 History 5-325 mg] Allergies Allergy/AdvReac Type Severity Reaction Status Date / Time adhesive tape Allergy Rash/Hives Verified 11/28/17 12:20 bee venom protein (honey bee) Allergy Rash/Hives Verified 11/28/17 12:20 Sulfa (Sulfonamide Allergy Itching Verified 11/28/17 12:20 Antibiotics) Physical Exam Osteopathic Statement: *. No significant issues noted on an osteopathic structural exam other than those noted in the History and Physical/Consult. Vitals: Vital Signs Temp Pulse Resp BP Pulse Ox 11/28/17 13:07 92 20 141/66 91 L 11/28/17 12:06 98 11/28/17 11:54 92 11/28/17 11:04 98.1 F 92 20 140/80 92 L Intake and Output 11/27/17 11/28/17 11/28/17 22:59 06:59 14:59 Other: Voiding Method Toilet Weight 92.533 kg Patient Weight 11/29/17 06:59 Weight 92.533 kg General: ill appearing, mild distress, appears at stated age, normal weight Derm: no unusual rashes/lesions no unusual ecchymoses, warm, dry Head: atraumatic, normocephalic, symmetric Eyes: EOMI, no lid lag, anicteric sclera, pupils equal round reactive to light ENT: Nose and ears atraumatic, no thrush, no pharyngeal erythema Neck: No thyromegaly, no cervical lymphadenopathy, trachea midline, supple Mouth: no lip lesion, mucus membranes dry Cardiovascular: S1S2 reg, no murmur, positive posterior tibial pulse bilateral, no edema, capillary refill less than 2 seconds Lungs: rhonchi diffusely , no accessory muscle use Abdominal: soft, + TTP suprapubic, no guarding, no appreciable organomegaly, normal bowel sounds Ext: no gross muscle atrophy, muscle strength 4 out of 5 in all 4 extremities grossly, no contractures, Neuro: CN II-XI grossly intact, light touch intact all 4 extremities, finger to nose within normal limits, Psych: Alert, oriented, appropriate affect Results CBC & Chem 7: 11/28/17 11:29 11/28/17 11:29 Labs: Abnormal Lab Results - Last 24 Hours (Table) 11/28/17 11/28/17 11/28/17 Range/Units 11:29 11:29 12:30 Lymphocytes # 0.6 L (1.0-4.8) k/uL Glucose 104 H (74-99) mg/dL AST 149 H (14-36) U/L ALT 84 H (9-52) U/L Alkaline Phosphatase 187 H (38-126) U/L Urine Appearance Cloudy H (Clear) Urine Protein 1+ H (Negative) Urine Ketones Trace H (Negative) Urine Blood Small H (Negative) Ur Leukocyte Esterase Large H (Negative) Urine RBC 59 H (0-5) /hpf Urine WBC >182 H (0-5) /hpf Ur Squamous Epith Cells 8 H (0-4) /hpf Urine Bacteria Occasional H (None) /hpf Urine Mucus Many H (None) /hpf Thrombosis Risk Factor Assmnt - DVT/VTE Prophylaxis DVT/VTE Prophylaxis: Pharmacologic Prophylaxis ordered - Choose All That Apply Each Factor Represents 1 point: Obesity (BMI >25) Each Risk Factor Represents 2 Points: Age 61-74 years, Malignancy Thrombosis Risk Factor Assessment Total Risk Factor Score: 5 Thrombosis Risk Factor Assessment Level: High Risk Assessment and Plan Assessment: Urinary tract infection, failed outpatient treatment -Rocephin -IV fluids -Await urine culture Intractable bone pain secondary to metastasis -Increase fentanyl patch to 50 every 72 hours -Increase MS Contin to 45 mg every 12 -Continue with Percocet, if pain is untreated in the morning increase Percocet dosing -Morphine IV for breakthrough pain Stage IV small cell carcinoma of the lung - Has elected for no additional chemo or radiation therapy. GERD -PPI Bipolar - continue prozac, trazodone Debility with multtiple falls -PT consult - fall precautions - Hospice information meeting for care on discharge Surrogate decision-maker: DaughterJeanie RAMACHANDRAN CODE STATUS:DNR after discussion with patient and family DVT prophylaxis: Lovenox Discussed with: patient, daughter, case management Anticipated discharge: 24-[address]: home with hospice A total of 65 minutes was spent on the care of this complex patient more than 50 % of the time was spent in counseling and care coordination.
[2017-11-28] MEDS: FLUoxetine HCL 20 MG CAP PO SCH (15:52)
[2017-11-28 16:09] VITALS: RESP 16
[2017-11-28] MEDS: PERPHENAZINE 4 MG TAB PO SCH (16:15)
[2017-11-28] MEDS: LORazepam 1 MG TAB PO PRN (17:56)
[2017-11-28] MEDS: oxyCODONE-APAP 5-325MG 1 EACH TAB PO PRN (19:13)
[2017-11-28] MEDS: MORPHINE SULFATE ER 15 MG TABLET PO SCH (20:52)
[2017-11-28] MEDS: traZODone HCL 50 MG TAB PO SCH (20:52)
[2017-11-29] MEDS: LORazepam 1 MG TAB PO PRN ×2 (01:26→21:16)
[2017-11-29] MEDS: oxyCODONE-APAP 5-325MG 1 EACH TAB PO PRN ×5 (03:37→21:51)
[2017-11-29] MEDS: SODIUM CHLORIDE 0.45% 1,000 ML IV SCH (03:39)
[2017-11-29] MEDS: ALBUTEROL NEBULIZED 2.5 MG/3 ML INHALATION PRN ×3 (07:08→16:42)
[2017-11-29 07:20] LABS: Basophils % (A) 0 %; Eosinophils # (A) 0.3 k/uL (0-0.7); Eosinophils % (A) 6 %; HCT 38.3 % (34.0-46.0); HGB 12.1 gm/dL (11.4-16.0); Hypochromasia Moderate; Lymphocytes # (A) 0.7 k/uL (1.0-4.8); Lymphocytes % (A) 12 %; MCH 28.7 pg (25.0-35.0); MCHC 31.5 g/dL (31.0-37.0); Mean Platelet Volume 7.9; Monocytes # (A) 0.3 k/uL (0-1.0); Monocytes % (A) 6 %; Neutrophils # (A) 4.3 k/uL (1.3-7.7); Neutrophils % (A) 73 %; Platelet Count 153 k/uL (150-450); Poikilocytosis Slight; RDW 13.6 % (11.5-15.5); WBC 5.8 k/uL (3.8-10.6)
[2017-11-29 07:28] LABS: Anion Gap 9 mmol/L; Blood Urea Nitrogen 11 mg/dL (7-17); Calcium 8.4 mg/dL (8.4-10.2); Carbon Dioxide 28 mmol/L (22-30); Chloride 101 mmol/L (98-107); Glucose 98 mg/dL (74-99); Magnesium 1.8 mg/dL (1.6-2.3); Potassium 4.4 mmol/L (3.5-5.1); Sodium 138 mmol/L (137-145)
[2017-11-29] MEDS: ENOXAPARIN 40 MG/0.4 ML SYRINGE SQ SCH (07:55)
[2017-11-29] MEDS: MORPHINE SULFATE ER 15 MG TABLET PO SCH ×2 (07:56→20:13)
[2017-11-29] MEDS: FLUoxetine HCL 20 MG CAP PO SCH ×2 (07:57→17:03)
[2017-11-29] MEDS: PANTOPRAZOLE 40 MG TABLET PO SCH (07:57)
[2017-11-29] MEDS: PERPHENAZINE 4 MG TAB PO SCH ×2 (07:57→17:03)
[2017-11-29] MEDS: cefTRIAXone IN SWFI 2,000 MG/20 ML SYRINGE IVP SCH (08:46)
[2017-11-29] MEDS ORDERED: cefTRIAXone 2 MG in SODIUM CHLORIDE 0.9% 50 ML IVPB SCH (09:00)
--- NOTE | 2017-11-29 09:45 | P.PN ---
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 She had been seen in the ER a few days prior secondary to falls and weakness and was diagnosed with urinary tract infection. She was started on Macrodantin secondary to a Bactrim ALLERGY. She did not improve so she represented to the ER. She underwent an extensive evaluation. Her vital signs are found to be within limits. Laboratory analysis revealed elevated liver enzymes which are unchanged from June of this year and a urinary tract infection. She was given IV fluids and a dose of Rocephin. Arrangements are made for admission to the general medical floor for failed outpatient treatment of UTI. Her and her daughter are interested in hospice at discharge. She had been having poor pain control at home and her fentanyl patch and MS contin were increased. She has maintained on IVF and rocephin. By the morning of 11/29 she had great improvement in her pain control and was feeling much better. Patient seen and examined at bedside. She report that she has been having poor sleep at home and takes 50 mg of trazodone thorough Dr. Arzate. Her abdominal pain is improved. No nausea. Ate a small amount but still not interested in breathing. Cough is more productive today and easier to clear. No chest pain. No BM yesterday. Objective - Vital Signs Vital signs: Vital Signs Temp 97.4 F L 11/29/17 07:00 Pulse 89 11/29/17 08:00 Resp 16 11/29/17 08:00 BP 161/90 11/29/17 07:00 Pulse Ox 93 L 11/29/17 07:00 Intake & Output 11/28/17 11/29/17 11/29/17 18:59 06:59 18:59 Intake Total 900 Balance 900 Weight 92.533 kg Intake: IV 900 Sodium Chloride 0.45% 1, 900 000 ml @ 75 mls/hr IV . [id number] [facility] Rx#:[id number] Other: Voiding Method Bedside Commode Bedside Commode Bedside Commode # Voids 2 1 - Exam General: ill appearing, no distress, appears older than stated age, temporal wasting Derm: warm, dry Head: atraumatic, normocephalic, symmetric Eyes: EOMI, no lid lag, anicteric sclera Mouth: no lip lesion, mucus membranes moist Cardiovascular: S1S2 reg, no murmur, positive posterior tibial pulse bilateral, Lungs: rhonchi b/l, improved bs at bases, no accessory muscle use Abdominal: soft, nontender to palpation, no guarding, no appreciable organomegaly Ext: no gross muscle atrophy, no edema, no contractures Neuro: CN II-XI grossly intact, no focal neuro deficits Psych: Alert, oriented, appropriate affect - Labs CBC & Chem 7: 11/29/17 06:53 11/29/17 06:53 Labs: Abnormal Lab Results - Last 24 Hours (Table) 11/28/17 11/28/17 11/28/17 Range/Units 11:29 11:29 12:30 Lymphocytes # 0.6 L (1.0-4.8) k/uL Glucose 104 H (74-99) mg/dL AST 149 H (14-36) U/L ALT 84 H (9-52) U/L Alkaline Phosphatase 187 H (38-126) U/L Urine Appearance Cloudy H (Clear) Urine Protein 1+ H (Negative) Urine Ketones Trace H (Negative) Urine Blood Small H (Negative) Ur Leukocyte Esterase Large H (Negative) Urine RBC 59 H (0-5) /hpf Urine WBC >182 H (0-5) /hpf Ur Squamous Epith Cells 8 H (0-4) /hpf Urine Bacteria Occasional H (None) /hpf Urine Mucus Many H (None) /hpf 11/29/17 Range/Units 06:53 Lymphocytes # 0.7 L (1.0-4.8) k/uL Glucose (74-99) mg/dL AST (14-36) U/L ALT (9-52) U/L Alkaline Phosphatase (38-126) U/L Urine Appearance (Clear) Urine Protein (Negative) Urine Ketones (Negative) Urine Blood (Negative) Ur Leukocyte Esterase (Negative) Urine RBC (0-5) /hpf Urine WBC (0-5) /hpf Ur Squamous Epith Cells (0-4) /hpf Urine Bacteria (None) /hpf Urine Mucus (None) /hpf Microbiology - Last 24 Hours (Table) 11/28/17 12:30 Urine Culture - Preliminary Urine,Voided Assessment and Plan Assessment: Urinary tract infection, failed outpatient treatment -Rocephin -IV fluids -Await urine culture Intractable bone pain secondary to metastasis -Continue fentanyl patch to 50 every 72 hours -Continue MS Contin to 45 mg every 12 -Continue with Percocet, if pain is untreated in the morning increase Percocet dosing -Morphine IV for breakthrough pain Insomnia - d/w psych to determine is okay to increase trazodone. Stage IV small cell carcinoma of the lung - Has elected for no additional chemo or radiation therapy. - Hospice on dishcarge Elevated liver enzymes, due to metastasis - unchanged since june no need to re-check GERD -PPI Bipolar - continue prozac, trazodone Debility with multiple falls -PT consult - fall precautions - Hospice information meeting for care on discharge DVT prophylaxis: Lovenox Discussed with: patient Anticipated discharge: 24-[address]: home with hospice A total of 35 minutes was spent on the care of this complex patient more than 50 % of the time was spent in counseling and care coordination.
[2017-11-29] MEDS: traZODone HCL 50 MG TAB PO SCH (20:14)
[2017-11-30] MEDS: SODIUM CHLORIDE 0.45% 1,000 ML IV SCH ×2 (02:24→05:41)
[2017-11-30] MEDS: oxyCODONE-APAP 5-325MG 1 EACH TAB PO PRN ×2 (03:02→07:46)
[2017-11-30] MEDS: MORPHINE SULFATE 2 MG/ML SYRINGE IV PRN ×3 (05:41→16:10)
[2017-11-30 07:44] VITALS: BP 148/83; TEMP 98
[2017-11-30] MEDS ORDERED: MORPHINE ORAL SOL CONC 20 MG/ML BOTTLE PO PRN (09:02)
--- NOTE | 2017-11-30 09:12 | P.PN ---
Progress Note - Text Progress Note Date: 11/30/17 Hospitalist Interval Note: C/O pain last night. Oral regiment not working. IV morphine worked well. New spine pain that is increasing. No lower extremity weakness or tingling. No BM yesterday. No nausea, decreased appetite. BP 148/83 HR 87 RR 16 T 98 91% RA General: ill appearing, no distress, appears older than stated age, temporal wasting Derm: warm, dry Head: atraumatic, normocephalic, symmetric Eyes: EOMI, no lid lag, anicteric sclera Mouth: no lip lesion, mucus membranes moist Cardiovascular: S1S2 reg, no murmur, positive posterior tibial pulse bilateral, Lungs: rhonchi b/l, no accessory muscle use Abdominal: soft, nontender to palpation, no guarding, no appreciable organomegaly Ext: no gross muscle atrophy, no edema, no contractures Neuro: CN II-XI grossly intact, no focal neuro deficits Psych: Alert, oriented, appropriate affect UTI group B strep- will plan on oral PCN deverititive. Intractable pain- patient would like to go home with hospice today. Increase MC contin from 45 mg BID to 60 mg BID. Stop percocet add Roxinol. Will reassess pain control and determined if can be discharge. Insomnia - D/W with her psychiatrist and trazodone is okay to be increased. Will increase to 100 mg at night. Constipation- patient requests suppository. Dayana Mcneill,
[2017-11-30] MEDS ORDERED: MORPHINE SULFATE ER 60 MG TABLET PO SCH (09:15)
[2017-11-30] MEDS: ALBUTEROL NEBULIZED 2.5 MG/3 ML INHALATION PRN ×2 (09:23→13:34)
[2017-11-30] MEDS: BISACODYL 10 MG SUPP RECTAL SCH ×2 (09:45→11:11)
[2017-11-30] MEDS: ENOXAPARIN 40 MG/0.4 ML SYRINGE SQ SCH (09:45)
[2017-11-30] MEDS: FLUoxetine HCL 20 MG CAP PO SCH ×2 (09:46→16:11)
[2017-11-30] MEDS: cefTRIAXone IN SWFI 2,000 MG/20 ML SYRINGE IVP SCH (09:46)
[2017-11-30] MEDS: PANTOPRAZOLE 40 MG TABLET PO SCH (09:46)
[2017-11-30] MEDS: PERPHENAZINE 4 MG TAB PO SCH ×2 (09:46→16:11)
[2017-11-30] MEDS ORDERED: MORPHINE ORAL SOLN 10 MG/5 ML CUP PO PRN ×2 (10:51→13:15)
[2017-11-30] MEDS: MORPHINE SULFATE ER 15 MG TABLET PO SCH (11:27)
[2017-11-30] MEDS ORDERED: MORPHINE ORAL SOL CONC 20 MG/ML BOTTLE PO ONE (13:14)
[2017-11-30 13:38] VITALS: PULSE 96
--- NOTE | 2017-11-30 16:28 | P.DS ---
Providers Date of admission: 11/28/17 12:58 Expected date of discharge: 11/30/17 Attending physician: Dayana Medina DO Consults: Hospice Primary care physician: Oanh Bansal MD - Discharge Diagnosis(es) (1) UTI (urinary tract infection) Current Visit: Yes Status: Acute (2) Failure of outpatient treatment Current Visit: Yes Status: Acute (3) Intractable pain Current Visit: Yes Status: Acute (4) Lung cancer metastatic to bone Current Visit: No Status: Acute (5) Constipation Current Visit: Yes Status: Acute (6) Insomnia Current Visit: Yes Status: Acute (7) Transaminitis Current Visit: Yes Status: Acute (8) Small cell lung cancer Current Visit: No Status: Chronic Priority: Medium Hospital Course: Patient is a 62-year-old female with a past medical history of stage IV small 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 She had been seen in the ER a few days prior secondary to falls and weakness and was diagnosed with urinary tract infection. She was started on Macrodantin secondary to a Bactrim ALLERGY. She did not improve so she represented to the ER. She underwent an extensive evaluation. Her vital signs are found to be within limits. Laboratory analysis revealed elevated liver enzymes which are unchanged from June of this year and a urinary tract infection. She was given IV fluids and a dose of Rocephin. Arrangements are made for admission to the general medical floor for failed outpatient treatment of UTI. Her and her daughter are interested in hospice at discharge. She had been having poor pain control at home and her fentanyl patch and MS contin were increased. She was maintained on IVF and rocephin. By the morning of 11/29 she had great improvement in her pain control and was feeling much better. She again struggle with pain during the evening of 11/29 with worsening spine pain. Her MS contin was again increased and her percocet was changed to roxinol this seemed to improve her pain control. Her urine resulted as Group B strep and she will be discharged home on Augmentin to complete a 7 day course. She also met with hospice and has elected to sign onto [facility]. For physical exam on day for discharge please see progress note same date. A total of 37 minutes of time were spent preparing this complex discharge summary . Pertinent Studies: None Procedures: None Patient Condition at Discharge: Stable Plan - Discharge Summary Discharge Rx Participant: Yes New Discharge Prescriptions: New fentaNYL 50MCG/HR PATCH [Duragesic 50MCG/HR] 1 patch TRANSDERM Q72H #10 patch MORPHINE ORAL ERIN 2mg/mL [Morphine Oral Soln 2 MG/ML] 10 mg PO Q4HR PRN #20 ml PRN Reason: Breakthrough Pain Morphine Sulfate ER [Ms Contin] 60 mg PO Q12HR #60 tablet traZODone HCL [Desyrel] 100 mg PO HS #30 tab Amoxic-Pot Clav 875-125Mg [Augmentin 875-125] 1 tab PO Q12HR #10 tablet Continue Perphenazine(Trilafon) 2 mg PO BID FLUoxetine HCL [PROzac] 40 mg PO BID Gabapentin [Neurontin] 400 mg PO TID PRN #90 cap PRN Reason: Pain LORazepam [Ativan] 1 mg PO TID PRN #90 tab PRN Reason: Anxiety Discontinued traZODone HCL 50 mg PO HS Nitrofurantoin Monohyd/M-Cryst [Macrobid] 100 mg PO Q12HR #14 cap oxyCODONE-APAP 5-325MG [Percocet 5-325 mg] 1 tab PO Q4HR PRN PRN Reason: pain fentaNYL 25MCG/HR PATCH [Duragesic 25MCG/HR] 1 patch TRANSDERM Q72H Morphine Sulfate ER [Ms Contin 30Mg] 30 mg PO Q12HR Discharge Medication List FLUoxetine HCL [PROzac] 40 mg PO BID 11/25/17 [History] Perphenazine(Trilafon) 2 mg PO BID 11/25/17 [History] Amoxic-Pot Clav 875-125Mg [Augmentin 875-125] 1 tab PO Q12HR #10 tablet [Rx] Gabapentin [Neurontin] 400 mg PO TID PRN #90 cap 11/30/17 [Rx] LORazepam [Ativan] 1 mg PO TID PRN #90 tab 11/30/17 [Rx] MORPHINE ORAL ERIN 2mg/mL [Morphine Oral Soln 2 MG/ML] 10 mg PO Q4HR PRN #20 ml 11/30/17 [Rx] Morphine Sulfate ER [Ms Contin] 60 mg PO Q12HR #60 tablet 11/30/17 [Rx] fentaNYL 50MCG/HR PATCH [Duragesic 50MCG/HR] 1 patch TRANSDERM Q72H #10 patch [Rx] traZODone HCL [Desyrel] 100 mg PO HS #30 tab 11/30/17 [Rx] Follow up Appointment(s)/Referral(s): [facility], [NON-STAFF] - 1 Week Patient Instructions/Handouts: Lorazepam (By mouth), Amoxicillin/Clavulanate Potassium (By mouth), Morphine, Rapid Release (By mouth), Gabapentin (By mouth) , Morphine, Slow Release (By mouth) Activity/Diet/Wound Care/Special Instructions: follow-up with [facility] on discharge Discharge Disposition: HOME WITH HOSPICE
[2017-11-30] MEDS ORDERED: traZODone HCL 100 MG TAB PO SCH (21:00)
== END 2017-11-30 16:44 | disposition hospice, home (50) | DRG 690 ==
LOC: EC 10:51 → 5ONC 12:58
PROVIDERS: ADMIT Internal Medicine; ATTEND Internal Medicine
DX: N39.0 Urinary tract infection, site not specified (principal); C79.51 Secondary malignant neoplasm of bone; C34.90 Malignant neoplasm of unspecified part of unspecified bronchus or lung; F31.9 Bipolar disorder, unspecified; B95.1 Streptococcus, group B, as the cause of diseases classified elsewhere; E86.0 Dehydration; G47.00 Insomnia, unspecified; K21.9 Gastro-esophageal reflux disease without esophagitis; G89.3 Neoplasm related pain (acute) (chronic); R53.81 Other malaise; K59.00 Constipation, unspecified; Z51.5 Encounter for palliative care; R05 Cough; R29.6 Repeated falls; Z66 Do not resuscitate; Z91.030 Bee allergy status; Z88.2 Allergy status to sulfonamides; Z91.81 History of falling; Z91.048 Other nonmedicinal substance allergy status; Z79.899 Other long term (current) drug therapy; Z79.891 Long term (current) use of opiate analgesic; Z83.3 Family history of diabetes mellitus; Z87.891 Personal history of nicotine dependence; Z90.710 Acquired absence of both cervix and uterus; Z90.89 Acquired absence of other organs; Z92.3 Personal history of irradiation; Z92.21 Personal history of antineoplastic chemotherapy; Z88.1 Allergy status to other antibiotic agents
CPT/HCPCS: 36415; 71046; 71111; 72100; 73502; 80048; 80053; 81001; 82553; 83605; 83735; 84484; 85025; 85610; 85730; 87086; 93005; 94640; 94760; 96361; 96374; 96375; 99283; 99285